=== PATIENT | male | born 1950 | race Caucasian/White ===

== ENCOUNTER → 2016-10-25 | Outpatient (CLI) | payer BC, MEDICARE ==
[~2016-10-25] MED LIST: /ATOR40TA OR; /LOR25TA OR; /PANT40TA OR; ACET65TA OR; AMBI10TA OR; ASPI325T OR; BENA20TA2 OR; BENA25CA2 PO; COMBVENT INH; CORE6.25 OR; FLON0.05; FOLI1TAB OR; KETO-28 OR; LEVO175T2 PO; LOTR52CA PO; MAGN500T2 OR; NITR4TASL SL; PHEN 25 PO; PHEN1SUP6 PR; PLAV75TA2 OR; POTA20TA OR; PROS5TAB OR; RANI150C OR; SYNT125T OR; TAMO20TA4 PO; TRAM50TA2 OR; TYLE500T78 PO; VITAMIN B-12 INJ; XANA0.25 OR; amlodipine PO
--- NOTE | 2016-10-25 10:31 | REP ---
UNILATERAL MAMMOGRAM LEFT BREAST: HISTORY: Right breast cancer and breast cancer in sister. Left breast mammogram performed in the MLO and CC projections. No mass or clustered microcalcifications are seen. There is very mild fibroglandular tissue present. IMPRESSION: ACR 1 negative mammogram left breast in his patient status post right breast cancer and mastectomy. Recommend followup mammogram in 1 year. This mammogram was interpreted with the aid of an FDA-approved computer-aided detection system. The patient states she/he had a clinical breast exam in 10/2016. The patient letter being requested is M1. Signed by Keith Houston MD 10/25/2016 03:19 P
== END ==
LOC: M RAD 09:02
PROVIDERS: ATTEND Internal Medicine Medical Oncology
DX: Z08 Encounter for follow-up examination after completed treatment for malignant neoplasm (principal); Z85.3 Personal history of malignant neoplasm of breast

== ENCOUNTER → 2017-08-19 | Outpatient (CLI) | payer MEDICARE ==
--- NOTE | 2017-08-19 09:42 | REP ---
CT of the chest without IV contrast: Comparisons are 08/23/2016 and 11/19/2014. There are multiple calcified granulomas in the left lung. These are unchanged. There are no calcified mediastinal or hilar nodes. There is a pleural-based 7 mm nodule posteriorly in the right lower lobe on image 52. This is unchanged from 08/23/2016 but was not present on 2014. There is no mediastinal adenopathy. There is no axillary adenopathy. The study is insensitive for hilar adenopathy in the absence of IV contrast. Thoracic aorta is unremarkable. Cardiac size is normal. There is calcified atheroma in the coronary arteries. The visualized upper abdominal contents demonstrate a gallbladder calculus measuring 8 mm. This is unchanged. There is no adrenal mass. Impression: Calcified granulomas in the left lung. 7 mm pleural-based lung nodule in the right lower lobe of the right lung, unchanged from 08/23/2016 but not present on 11/19/2014. Signed by Keith Zayas MD 08/19/2017 09:33 A
== END ==
LOC: M RAD 09:07
PROVIDERS: ATTEND Internal Medicine Pulmonary Disease
DX: R91.1 Solitary pulmonary nodule (principal); J84.10 Pulmonary fibrosis, unspecified

== ENCOUNTER → 2017-10-28 | Outpatient (CLI) | payer MEDICARE | LOC: M RAD 08:30 | DX: Z12.31 Encounter for screening mammogram for malignant neoplasm of breast (principal); Z85.3 Personal history of malignant neoplasm of breast; Z90.11 Acquired absence of right breast and nipple; Z08 Encounter for follow-up examination after completed treatment for malignant neoplasm | CPT/HCPCS: 77067 ==

== ENCOUNTER → 2018-08-18 | Outpatient (CLI) | payer MEDICARE | LOC: M RAD 09:11 | DX: J84.10 Pulmonary fibrosis, unspecified (principal); K80.20 Calculus of gallbladder without cholecystitis without obstruction | CPT/HCPCS: 71250 ==

== ENCOUNTER → 2018-10-10 | Outpatient (CLI) | payer MEDICARE ==
[~2018-10-10] MED LIST changes: +ISOVUE-370 76% 100ML VIAL (Q9967) As Ordered ONE; -TAMO20TA4 PO; +TAMO20TA8 PO
--- NOTE | 2018-10-10 17:32 | REP ---
CT angiography of the abdomen and pelvis with IV contrast: History: Iliac aneurysm. Comparison CT study of the abdomen is from October 23, 2014. CT contrast dose: 100 ml of intravenous Isovue [address] findings: There is one opaque gallstone visible in the dependent portion of the gallbladder. There is renal cortical parenchymal scarring in the upper pole of the right kidney. There is a bilateral L5 spondylolysis with grade 1 spondylolisthesis measuring 7 mm in diameter. Vascular findings: There is patchy vascular calcification. Calcific plaquing is seen at the origin of the renal arteries bilaterally and there is evidence of a high-grade left renal artery stenosis. The celiac and superior mesenteric artery origins are patent. The inferior mesenteric artery is patent although there is calcific plaquing at its origin. There is some plaquing and tortuosity of the suprarenal and infrarenal aorta. A small aorto- right iliac artery aneurysm is seen. The aortic component measures 3.6 cm in greatest AP dimension. The left common iliac artery is ectatic measuring 1.7 cm. The right common iliac artery aneurysm measures 2.7 cm in AP dimension. There is calcific plaquing along the common iliacs bilaterally. The external iliac arteries are tortuous bilaterally. Internal iliac artery on the right is aneurysmal proximally measuring 2.2 cm in greatest diameter. The left internal iliac artery shows no evidence of aneurysm. Common femoral artery plaquing is seen bilaterally. No high-grade stenosis seen. Impression: Distal aorto- right common iliac artery aneurysm. The right internal iliac artery is mildly aneurysmal as well. The left common iliac artery is ectatic. The distal aorta measures 3.6 cm in greatest AP dimension. This previously measured 3.0 cm on October 23, 2014. Electronically Signed by Jayden Joshua MD 10/11/2018 08:15 A
== END ==
LOC: M RAD 12:57
DX: I71.4 Abdominal aortic aneurysm, without rupture (principal); I72.8 Aneurysm of other specified arteries
CPT/HCPCS: 74174; Q9967

== ENCOUNTER → 2019-05-03 | Outpatient (REF) | payer MEDICARE ==
[~2019-05-03] MED LIST changes: -/ATOR40TA OR; -/PANT40TA OR; +ATOR80TA59 PO; +BAYE325T12 PO; +CARV6.25 PO; +CEPH500C; +COMBAER6 INH; +D3 S1CAP3 PO; +DIPH12.527 PO; +FINA5TAB2 PO; +FLUT1INH2 INH; +FOLITAB5 PO; +HYDR-3716 PO; -ISOVUE-370 76% 100ML VIAL (Q9967) As Ordered ONE; +KLOR20TA42 FT; +LIPI1TAB2 OR; +MAGN400T5 PO; +PANT-23 PO; +PHEN-501; +PLAV1TAB2 PO; +PROT1TAB2 OR; +RANI1SYP PO; +TRAM50TA2 PO; +XANA0.25 PO; +ZOLP10TA2 PO
== END ==
LOC: M LAB REF 09:39
PROVIDERS: ATTEND Physician Assistant
DX: R30.0 Dysuria (principal)

== ENCOUNTER 2019-05-04 08:02 | Emergency (ER) | payer MEDICARE ==
[~2019-05-04] VITALS: Ht 185.4 cm; Wt 98.6 kg
[~2019-05-04 08:02] MED LIST changes: -CEPH500C; -PHEN-501
[2019-05-04] MEDS ORDERED: CEPH500C (08:10)
[2019-05-04] MEDS ORDERED: PHEN-501 (08:10)
[2019-05-04] MEDS ORDERED: LIDOCAINE 2% 5ML JELLY UROJET TOP ONE (09:15)
[2019-05-04 09:17] LABS: BASO % 0.4 % (0.0-1.0); HEMATOCRIT 44.9 % (42.0-52.0); HEMOGLOBIN 15.1 g/dl (13.5-17.5); LYMPH # 1.6 10^3/uL (1.5-4.5); LYMPH % 16.6 % (24.0-44.0); MEAN CORPUSCULAR HEMOGLOBIN 33.6 pg (27.0-33.0); MEAN CORPUSCULAR HGB CONC 33.6 g/dl (32.0-36.5); MONO # 0.7 10^3/uL (0.0-0.8); MONO % 7.1 % (0.0-5.0); NEUTROPHILS % 75.6 % (36.0-66.0); PLATELET COUNT, AUTOMATED 210 10^3/uL (150-450); RED BLOOD COUNT 4.49 10^6/uL (4.30-6.10); WHITE BLOOD COUNT 9.3 10^3/uL (4.0-10.0)
[2019-05-04 09:26] LABS: BILIRUBIN, URINE MANUAL OBSCURED (NEGATIVE); KETONE, URINE MANUAL OBSCURED mg/dL (NEGATIVE); UROBILINOGEN, URINE MANUAL OBSCURED mg/dl (NORMAL)
[2019-05-04 09:27] LABS: GLUCOSE, URINE (UA) MANUAL NEGATIVE (NEGATIVE)
[2019-05-04 09:36] LABS: RENAL EPITHELIAL CELLS, URINE SMALL AMOUNT /hpf; SQUAMOUS EPITHELIAL CELL URINE MOD AMOUNT /hpf (SMALL AMT)
[2019-05-04 09:37] LABS: BACTERIA, URINE SMALL AMOUNT; HYALINE CAST, URINE NONE SEEN /lpf (0-1); SPERM, URINE SMALL AMOUNT
[2019-05-04 09:43] LABS: CALCIUM LEVEL 8.9 MG/DL (8.8-10.2); CREATININE FOR GFR 1.32 MG/DL (0.70-1.30); GLOMERULAR FILTRATION RATE 57.1 (>42); POTASSIUM SERUM 3.9 MEQ/L (3.5-5.1)
[2019-05-04] MEDS ORDERED: MORPHINE 4 MG/ML 1ML VIAL/SYRINGE (J2270) IV ONE (09:45)
[2019-05-04] MEDS ORDERED: ONDANSETRON 4MG/2ML VIAL (J2405) IV ONE (09:45)
[2019-05-04 13:07] VITALS: BP 157/90
--- NOTE | 2019-05-04 13:11 | SMCUROLCON ---
Urology Consultation General Date of Consultation 05/04/19 Reason For Consultation This patient is seen for Unable To Urinate. History of Present Illness This is a 68 y/o M w/ a PMH significant for migraines, CAD ([place] and 5v CABG in 2002), HTN, HL, BPH, hypothyroidism, and urethral meatal stenosis (s/p dilations x2), presenting to the ER w/ urinary retention. The patient notes that his stream has progressively gotten slower and slower up to the point where he could not void today. He has had 2 dilations for meatal stenosis previously, w/ the most recent one several years ago. He notes that after the last one he was given a dilator to use at home but he stopped as it was becoming too painful. He has never had a cystoscopy before. Past Medical History Medical History see HPI Surgical Hstory CABG, b/l knee surgeries Allergies Allergies: Coded Allergies: Nitrate Analogues (Verified Adverse Reaction, Intermediate, MIGRAINES, 01/22/19) morphine (Verified Adverse Reaction, Intermediate, N/V, MIGRAINES, 01/22/19) nitroglycerin (Verified Adverse Reaction, Intermediate, MIGRAINES, 01/22/19) Review of Systems General: Reports: Normal Appetite; Denies: Fatigue, Malaise Constitutional: Denies: Fever, Chills, Sweats, Weakness, Malaise Skin: Denies: Rash, Lesions, Breakdown, Nail Changes Pulmonary: Denies: Dyspnea, Cough Cardiovascular: Denies Chest Pain, Denies Palpitations Gastrointestinal: Denies: Nausea, Vomiting, Abdominal Pain Genitourinary: Reports: Retention Neurological: Denies: Weakness, Numbness, Incoordination, Change in Speech Psych: Reports: Mood Normal; Denies: Anxiety, Depression Physical Examination General Exam: Alert, Cooperative Chest Exam: Normal air movement Heart Exam: Rate Normal, Regular Rhythm Male Exam circumcised phallus w/ edema ventrally; meatal stenosis; b/l descended testicles w/o palpable masses - nontender Psych Exam: Mental status NL Vital Signs/I&O Vital Signs Date Time Temp Pulse Resp B/P (MAP) Pulse Ox O2 Delivery O2 Flow Rate FiO2 05/04/19 10:12 16 95 05/04/19 10:08 96.8 69 149/72 (97) Room Air Laboratory Data 24H Labs Laboratory Tests 2 05/04/19 08:42: Immature Granulocyte % (Auto) 0.3, White Blood Count 9.3, Red Blood Count 4.49, Hemoglobin 15.1, Hematocrit 44.9, Mean Corpuscular Volume 100.0H, Mean Corpuscular Hemoglobin 33.6H, Mean Corpuscular Hemoglobin Concent 33.6, Red Cell Distribution Width 13.3, Platelet Count 210, Neutrophils (%) (Auto) 75.6H, Lymphocytes (%) (Auto) 16.6L, Monocytes (%) (Auto) 7.1H, Eosinophils (%) (Auto) 0.0, Basophils (%) (Auto) 0.4, Neutrophils # (Auto) 7.0, Lymphocytes # (Auto) 1.6, Monocytes # (Auto) 0.7, Eosinophils # (Auto) 0.0, Basophils # (Auto) 0.0, Nucleated Red Blood Cells % (auto) 0.0, Anion Gap 4L, Glomerular Filtration Rate 57.1, Blood Urea Nitrogen 13, Creatinine 1.32H, Sodium Level 141, Potassium Level 3.9, Chloride Level 108H, Carbon Dioxide Level 29, Calcium Level 8.9 05/04/19 09:10: Urine Color (REENA) ORANGEH, Urine Appearance (REENA) CLEAR, Urine pH (REENA) 6.0, Urine Specific [place] (REENA) 1.015, Urine Protein OBSCUREDH, Bedside Urine Glucose (UA) NEGATIVE, Bedside Urine Ketones (LAB) OBSCUREDH, Bedside Urine Blood OBSCUREDH, Bedside Urine Nitrite (LAB) OBSCUREDH, Bedside Urine Bilirubin (LAB) OBSCUREDH, Bedside Urine Urobilinogen (LAB) OBSCUREDH, Bedside Urine Leukocyte Esterase (L OBSCUREDH, Urine Sediment Examination PERFORMED, Urine RBC 1-3, Urine WBC 15-20H, Urine Squamous Epithelial Cells MOD AMOUNTH, Urine Renal Epithelial Cells SMALL AMOUNTH, Urine Bacteria SMALL AMOUNTH, Urine Hyaline Casts NONE SEEN, Urine Sperm SMALL AMOUNTH CBC/BMP Laboratory Tests 05/04/19 08:42 Red Blood Count 4.49, Mean Corpuscular Volume 100.0 H, Mean Corpuscular Hemoglobin 33.6 H, Mean Corpuscular Hemoglobin Concent 33.6, Red Cell Distribution Width 13.3, Neutrophils (%) (Auto) 75.6 H, Lymphocytes (%) (Auto) 16.6 L, Monocytes (%) (Auto) 7.1 H, Eosinophils (%) (Auto) 0.0, Basophils (%) (Auto) 0.4, Neutrophils # (Auto) 7.0, Lymphocytes # (Auto) 1.6, Monocytes # (Auto) 0.7, Eosinophils # (Auto) 0.0, Basophils # (Auto) 0.0, Calcium Level 8.9 Microbiology Microbiology 05/04/19 Urine Culture, Received Pending Assessment This is a 68 y/o M w/ urethral meatal stenosis. Prior to placing a catheter, I prepped the patient w/ betadine and dilated his urethral meatus to 18Fr using curved metal sounds. Once done I was able to place a 16Fr López catheter. Plan - meatus dilated to 18Fr - 16Fr catheter placed - ok for discharge home w/ catheter in place - would keep on keflex - my office will contact the patient to schedule a follow up appt - he will need surgery later on, likely cystoscopy and meatotomy PATRICIA BRYANT MD May 04, 2019 13:11
[2019-05-18] MEDS ORDERED: ACET1TAB37 PO (15:20)
== END 2019-05-04 13:13 | disposition home or self-care (01) ==
LOC: M ED 08:02
DX: N35.919 Unspecified urethral stricture, male, unspecified site (principal); N39.0 Urinary tract infection, site not specified; N40.0 Benign prostatic hyperplasia without lower urinary tract symptoms; I10 Essential (primary) hypertension; E78.00 Pure hypercholesterolemia, unspecified; K21.9 Gastro-esophageal reflux disease without esophagitis; E03.9 Hypothyroidism, unspecified; G43.909 Migraine, unspecified, not intractable, without status migrainosus; F41.9 Anxiety disorder, unspecified; Z79.899 Other long term (current) drug therapy; Z79.890 Hormone replacement therapy; Z79.82 Long term (current) use of aspirin; Z79.02 Long term (current) use of antithrombotics/antiplatelets; Z88.5 Allergy status to narcotic agent; Z88.8 Allergy status to other drugs, medicaments and biological substances
CPT/HCPCS: 36415; 51702; 80048; 81000; 85025; 87086; 96374; 96375; 99284; J2270; J2405

== ENCOUNTER → 2019-05-26 | Outpatient (CLI) | payer MEDICARE ==
[~2019-05-26] MED LIST changes: +ACET1TAB37 PO; +APAP500T10 PO; +BENA25CA4 PO; +CEPH500C; +CEPH500C PO; +CHLO125TA PO; +D3 S20002 PO; +FLON1SPR NARES; +FOLI1TAB11 PO; +HYDR-4517 PO; +KETO10TAB PO; -KLOR20TA42 FT; +KLOR20TA42 PO; +MAGN400C PO; +PHEN-501; +PROM25SU2 PR; +RANI15TA PO
[2019-05-26 14:24] LABS: HEMATOCRIT 43.1 % (42.0-52.0); HEMOGLOBIN 14.4 g/dl (13.5-17.5); MEAN CORPUSCULAR HEMOGLOBIN 33.3 pg (27.0-33.0); MEAN CORPUSCULAR HGB CONC 33.4 g/dl (32.0-36.5); MEAN CORPUSCULAR VOLUME 99.8 fl (80.0-96.0); PLATELET COUNT, AUTOMATED 196 10^3/uL (150-450); RED BLOOD COUNT 4.32 10^6/uL (4.30-6.10); WHITE BLOOD COUNT 9.8 10^3/uL (4.0-10.0)
[2019-05-26 14:37] LABS: INR 1.08; PROTHROMBIN TIME 13.7 SECONDS (11.8-14.0)
[2019-05-26 14:38] LABS: PARTIAL THROMBOPLASTIN TIME 28.3 SECONDS (25.0-38.4)
[2019-05-26 14:46] LABS: CALCIUM LEVEL 8.8 MG/DL (8.8-10.2); CREATININE FOR GFR 1.44 MG/DL (0.70-1.30); GLOMERULAR FILTRATION RATE 51.6 (>42); POTASSIUM SERUM 4.4 MEQ/L (3.5-5.1)
--- NOTE | 2019-05-26 14:59 | REP ---
REASON: Preoperative evaluation. Comparison examination 10/22/2014. Note is again made of the previous median sternotomy. The heart size is borderline. There is an unchanged calcified granuloma left lower lobe. There are no new abnormal opacities. Chronic change is seen involving the spine. IMPRESSION: No evidence of acute disease. Electronically Signed by Ean Armenta DO 05/26/2019 04:14 P
== END ==
LOC: M SMT 12:02
PROVIDERS: ATTEND Nurse Practitioner Women's Health
DX: Z01.818 Encounter for other preprocedural examination (principal); N35.919 Unspecified urethral stricture, male, unspecified site

== ENCOUNTER → 2019-06-11 | Outpatient (REF) | payer MEDICARE ==
[~2019-06-11] MED LIST changes: +ASPI81TA26 PO
== END ==
LOC: M SMT 13:02
PROVIDERS: ATTEND Urology
DX: N35.919 Unspecified urethral stricture, male, unspecified site (principal)

== ENCOUNTER 2019-06-18 07:40 | Day surgery (SDC) | payer MEDICARE ==
[~2019-06-18] VITALS: Ht 188 cm; Wt 97.5 kg
[~2019-06-18 07:40] MED LIST changes: -ASPI81TA26 PO; +LIDOCAINE 1% MDV 20ML VIAL SQ PRN; +LR 1,000 ML IV ONE; +ceFAZolin SOD 2 GM in IV 1 EA IV ONE
[2019-06-18] MEDS ORDERED: ASPI81TA26 PO (08:02)
[2019-06-18] MEDS ORDERED: LIDOCAINE 1% SDV INJ 30 ML VIAL As Ordered ONE (09:07)
[2019-06-18] MEDS ORDERED: BUPIVACAINE HCL 0.25% 30 ML VIAL As Ordered ONE (09:07)
[2019-06-18] MEDS ORDERED: BACITRACIN OINT 30GM As Ordered ONE (09:07)
[2019-06-18] MEDS ORDERED: LIDOCAINE 2% INJ 100 MG/5 ML SDV (FOR ANES.) As Ordered ONE (09:24)
[2019-06-18] MEDS ORDERED: fentaNYL 100 MCG/2 ML INJECTION (J3010) As Ordered ONE (09:24)
[2019-06-18] MEDS ORDERED: propofoL 200 MG/20 ML VIAL As Ordered ONE ×2 (09:24→10:14)
[2019-06-18] MEDS ORDERED: MIDAZOLAM INJ 2 MG/2 ML VIAL (J2250) As Ordered ONE (09:25)
[2019-06-18] MEDS ORDERED: KETOROLAC 60 MG/2 ML VIAL (J1885) As Ordered ONE (10:22)
[2019-06-18] MEDS ORDERED: ONDANSETRON 4MG/2ML VIAL (J2405) As Ordered ONE (10:22)
[2019-06-18 12:04] VITALS: BP 179/94
--- NOTE | 2019-06-22 15:00 | RO ---
DATE OF PROCEDURE: 06/18/2019 PREPROCEDURE DIAGNOSIS: Meatal stenosis. POSTPROCEDURE DIAGNOSIS: Meatal stenosis. PROCEDURE: Meatoplasty, cystoscopy. SURGEON: Jared Nicholas MD CARBURETOR SPECIALIST: None. ANESTHESIA: MAC. OPERATIVE INDICATION: This is a 68-year-old male who has had meatal stenosis that has had to be dilated several times, including about 1 month ago. It was recommended that he be brought to the operating room today for the above listed procedure. DESCRIPTION OF PROCEDURE: The patient was brought to the operating room where MAC anesthesia was administered. Prophylactic antibiotics were infused. He was then placed in supine position, prepped and draped in the usual sterile fashion. At this point, I placed hemostats on the urethral meatus at 6 o'clock and left them on there for approximately 60 seconds each time. This was done for a length of approximately 1-1/2 cm. After that was done, the clamps were taken off and the urethral meatus was incised at 6 o'clock for approximately 1-1/2 cm distally. After it was incised, I sewed of the edges of the skin to the urethral mucosa using interrupted 4-0 Vicryl sutures. Once this was done, there was excellent hemostasis and the urethral meatus was widely patent. I then performed flexible cystoscopy and there were no urethral strictures proximally. The bladder was thoroughly examined and there were no abnormalities in the bladder. The ureteral orifices were orthotopic. There were no lesions seen. Of note, there was mild outlet occlusion from bilobar prostatic hyperpalsia. The cystoscope was then removed and at this point a 16-[place] López catheter was inserted into the bladder and the balloon was filled with 10 mL of sterile water. The catheter was connected to gravity drainage. Dressings were applied. The marked conclusion of the procedure. The patient was then awakened from anesthesia and was transported to the recovery room in stable condition. Estimated blood loss: 5 mL. Complications: None. Specimens: None. PLAN: The patient will followup in the clinic next week for catheter removal and a voiding trial. He should be able to go back on his aspirin and Plavix at that time. RAVEN
[2019-09-24] MEDS ORDERED: TAMO20TA8 PO (15:47)
== END 2019-06-18 12:10 | disposition home or self-care (01) ==
LOC: M SDC 07:40
PROVIDERS: ATTEND Urology
DX: N35.919 Unspecified urethral stricture, male, unspecified site (principal); I10 Essential (primary) hypertension; I25.10 Atherosclerotic heart disease of native coronary artery without angina pectoris; I25.2 Old myocardial infarction; Z79.01 Long term (current) use of anticoagulants; I73.9 Peripheral vascular disease, unspecified; N40.0 Benign prostatic hyperplasia without lower urinary tract symptoms; Z95.1 Presence of aortocoronary bypass graft; D64.9 Anemia, unspecified; Z88.8 Allergy status to other drugs, medicaments and biological substances; Z79.82 Long term (current) use of aspirin; Z79.899 Other long term (current) drug therapy; Z87.891 Personal history of nicotine dependence
CPT/HCPCS: 52281; C1769; J0690; J1885; J2250; J2405; J3010

== ENCOUNTER → 2019-11-18 | Outpatient (CLI) | payer MEDICARE ==
[~2019-11-18] MED LIST changes: +ASPI81TA26 PO; +D-20TAB PO; +FAMO20TA PO; -LIDOCAINE 1% MDV 20ML VIAL SQ PRN; -LR 1,000 ML IV ONE; -ceFAZolin SOD 2 GM in IV 1 EA IV ONE
[2019-11-18 13:33] LABS: BLOOD UREA NITROGEN 14 MG/DL (7-18); CREATININE FOR GFR 1.24 MG/DL (0.70-1.30); GLOMERULAR FILTRATION RATE > 60.0 (>42)
== END ==
LOC: M LAB 09:48
PROVIDERS: ATTEND Surgery Vascular Surgery
DX: Z48.812 Encounter for surgical aftercare following surgery on the circulatory system (principal)

== ENCOUNTER → 2019-11-24 | Outpatient (CLI) | payer MEDICARE ==
--- NOTE | 2019-11-24 15:25 | REP ---
DIGITAL DIAGNOSTIC UNILATERAL LEFT BREAST MAMMOGRAPHY WITH CAD, 3D TOMOGRAPHY, AND FOCUSED LEFT BREAST SONOGRAPHY. HISTORY: Personal history of contralateral right breast cancer status post right mastectomy. Palpable lump in the left breast noticed the previous day. Comparison is made with prior mammography from April 21, 2013, October 25, 2016, and October 28, 2017. MAMMOGRAPHIC FINDINGS: A skin marker is affixed to the skin at the site of the palpable lump which projects in the upper outer quadrant left breast. Routine mammographic images are augmented by magnified focal spot views and 3D tomography. The breast parenchyma is fat replaced as previously observed. No mass lesion has developed mammographically. No architectural distortion or microcalcification is seen. No worrisome skin changes appreciated. No nipple inversion. FOCUSED LEFT BREAST SONOGRAPHY: The left breast is scanned in the region of the palpable lump in the upper outer quadrant. Normal subcutaneous acoustic texture is seen. No cyst or mass is observed by ultrasound. IMPRESSION: BIRADS 1: BI-RADS/ACR category 1 mammogram. Negative Mammogram. BIRADS category 1 negative left breast imaging findings. Clinical follow-up is advised. This mammogram was interpreted with the aid of an FDA-approved computer-aided detection system. The patient states he had a clinical breast exam in October 2019 The patient letter being requested is M2 . Electronically Signed by Jayden Joshua MD 11/24/2019 07:37 P
== END ==
LOC: M RAD 12:17
PROVIDERS: ATTEND Internal Medicine Hematology & Oncology
DX: Z12.31 Encounter for screening mammogram for malignant neoplasm of breast (principal); C50.421 Malignant neoplasm of upper-outer quadrant of right male breast
CPT/HCPCS: 76642; 77065; G0279

== ENCOUNTER → 2019-11-25 | Outpatient (CLI) | payer MEDICARE ==
[~2019-11-25] MED LIST changes: +ISOVUE-370 76% 100ML VIAL (Q9967) As Ordered ONE
--- NOTE | 2019-11-25 13:57 | REP ---
CT angiography abdomen and pelvis with IV contrast: History: Abdominal aortic aneurysm. Iliac artery aneurysm. Comparison CT angiography October 10, 2018 showed a distal aorto/right common iliac artery aneurysm and a right proximal internal iliac artery aneurysm. CT contrast dose: 100 mL of intravenous Isovue 370. CT technique: Helical scanning is acquired and 3 mm axial images are reformatted. Coronal and sagittal MPR and MIP images are generated. Surface rendered 3-D images are generated and viewed in a rotational display format. Nonvascular CT findings: There is an opaque gallstone in the gallbladder. There is a granuloma in the left lower lobe of the lung. There is cortical scarring in the upper pole of the right kidney. There is a bilateral L5 spondylolysis and a grade 1, 8 mm, L5-L1 spondylolisthesis is seen. These findings are all unchanged. Vascular findings: Widely patent celiac and superior mesenteric axes are again seen. There is evidence of high-grade stenosis of the left renal artery just beyond its origin. This is felt to be unchanged. There is considerable calcific plaquing at the origin of the right renal artery with some narrowing. This is also unchanged. There is a distal abdominal aortic aneurysm which measures 4.2 cm in greatest anteroposterior dimension on today's CT study. This measurement in September of 2018 was 3.6 cm. Its right to left dimension at this level is 5.0 cm, previously 4.5 cm. As previously noted there is extension of the aneurysm of the common iliac artery on the right which measures 3.0 cm today, previously 2.7 cm. The right internal iliac artery aneurysm measures 2.3 cm today, previously 2.2 cm. The left common iliac artery is again noted to be diffusely ectatic, 1.9 cm. Previously 1.7 cm. No perianeurysmal fibrosis or hemorrhage is seen. There is atherosclerotic calcification and some plaquing in the external iliac and common femoral arteries bilaterally. Impression: Aorto/right iliac artery aneurysm is again noted, increased in size somewhat from the prior study. The aortic dimension is 4.2 cm anterior to posterior today. Electronically Signed by Jayden Joshua MD 11/25/2019 02:38 P
== END ==
LOC: M RAD 10:03
PROVIDERS: ATTEND Surgery Vascular Surgery
DX: I71.4 Abdominal aortic aneurysm, without rupture (principal); I72.3 Aneurysm of iliac artery
CPT/HCPCS: 74174; Q9967

== ENCOUNTER → 2020-01-04 | Outpatient (REF) | payer MEDICARE ==
[~2020-01-04] MED LIST changes: -ISOVUE-370 76% 100ML VIAL (Q9967) As Ordered ONE
[2020-01-04 13:02] LABS: BASO % 0.5 % (0.0-1.0); HEMOGLOBIN 14.7 g/dl (13.5-17.5); LYMPH % 28.7 % (24.0-44.0); MEAN CORPUSCULAR HEMOGLOBIN 33.6 pg (27.0-33.0); MEAN CORPUSCULAR HGB CONC 33.4 g/dl (32.0-36.5); MEAN CORPUSCULAR VOLUME 100.7 fl (80.0-96.0); MONO % 7.9 % (0.0-5.0); NEUTROPHILS # 5.4 10^3/uL (1.5-8.5); NEUTROPHILS % 62.4 % (36.0-66.0); PLATELET COUNT, AUTOMATED 201 10^3/uL (150-450); RED BLOOD COUNT 4.37 10^6/uL (4.30-6.10); WHITE BLOOD COUNT 8.6 10^3/uL (4.0-10.0)
[2020-01-04 13:03] LABS: LYMPH # 2.5 10^3/uL (1.5-5.0); MONO # 0.7 10^3/uL (0.0-0.8)
[2020-01-04 13:38] LABS: ERYTHROCYTE SEDIMENTATION RATE 1 mm/hr (0-20)
== END ==
LOC: M LABDRAW1 11:45
PROVIDERS: ATTEND Orthopaedic Surgery
DX: M25.562 Pain in left knee (principal)

== ENCOUNTER → 2020-01-19 | Outpatient (CLI) | payer MEDICARE ==
--- NOTE | 2020-01-19 13:41 | REP ---
TRIPLE PHASE BONE SCAN OF THE KNEES: Following the intravenous administration of 22 mCi of technetium-99m MDP, patient's knees are imaged in multiple projections in the flow phase, immediate blood pool phase and 2 hour delayed phases of imaging. There are bilateral total knee prostheses which cause photopenic defects at both knee joints. There is mild increased blood flow to the region of the left knee. There is also mild increased blood pooling particularly along the femoral portion of the left knee prosthesis. There is increased delayed activity in the distal left femur adjacent to the metallic prosthesis. There is not significant increased uptake in the distal right femur or in the proximal tibias bilaterally. IMPRESSION: Increased blood flow, blood pooling and delayed activity in the distal left femur adjacent to metallic prosthesis. I cannot exclude loosening or infection. Electronically Signed by Keith Houston MD 01/19/2020 01:42 P
== END ==
LOC: M RAD 08:57
PROVIDERS: ATTEND Orthopaedic Surgery
DX: Z96.652 Presence of left artificial knee joint (principal)
CPT/HCPCS: 78315; A9503

== ENCOUNTER → 2020-02-24 | Outpatient (CLI) | payer MEDICARE ==
[2020-02-24 17:01] LABS: CALCIUM LEVEL 9.1 MG/DL (8.8-10.2); CREATININE FOR GFR 1.31 MG/DL (0.70-1.30); GLOMERULAR FILTRATION RATE 57.4 (>42); POTASSIUM SERUM 3.8 MEQ/L (3.5-5.1)
[2020-02-24 17:02] LABS: ALBUMIN 3.8 GM/DL (3.2-5.2); BILIRUBIN,TOTAL 0.4 MG/DL (0.2-1.0); TOTAL PROTEIN 6.6 GM/DL (6.4-8.2)
[2020-02-24 17:09] LABS: BASO % 0.5 % (0.0-1.0); HEMATOCRIT 45.5 % (42.0-52.0); HEMOGLOBIN 14.7 g/dl (13.5-17.5); LYMPH # 2.1 10^3/uL (1.5-5.0); LYMPH % 27.5 % (24.0-44.0); MEAN CORPUSCULAR HEMOGLOBIN 32.8 pg (27.0-33.0); MEAN CORPUSCULAR HGB CONC 32.3 g/dl (32.0-36.5); MEAN CORPUSCULAR VOLUME 101.6 fl (80.0-96.0); MONO # 0.6 10^3/uL (0.0-0.8); MONO % 7.1 % (0.0-5.0); NEUTROPHILS % 64.5 % (36.0-66.0); PLATELET COUNT, AUTOMATED 217 10^3/uL (150-450); RED BLOOD COUNT 4.48 10^6/uL (4.30-6.10); WHITE BLOOD COUNT 7.7 10^3/uL (4.0-10.0)
== END ==
LOC: M LRY 09:46
PROVIDERS: ATTEND Internal Medicine Hematology & Oncology
DX: C50.929 Malignant neoplasm of unspecified site of unspecified male breast (principal)

== ENCOUNTER → 2020-11-10 | Outpatient (REF) | payer MEDICARE ==
[~2020-11-10] MED LIST changes: -PROM25SU2 PR; +PROM25SU3 PR
== END ==
LOC: M LABSMT 08:54
PROVIDERS: ATTEND Urology
DX: Z12.5 Encounter for screening for malignant neoplasm of prostate (principal)

== ENCOUNTER → 2020-11-22 | Outpatient (CLI) | payer MEDICARE ==
--- NOTE | 2020-11-22 12:23 | REPPI ---
INDICATION: ELEVATED PSA. COMPARISON: None. TECHNIQUE: Transrectal prostate sonography. FINDINGS: Trans rectal prostate sonography demonstrates unremarkable seminal vesicles. Prostate gland is heterogeneous, with calcifications and cystic changes noted. Glandular dimensions are measured at 3.3 x 1.9 x 4.5 cm with a calculated glandular volume of 14.7 ml. A 1.4 cm hypoechoic nodule is seen in the right posterior gland. Transrectal sonographic guidance is provided to Dr. Nicholas who performed trans rectal ultrasound guided needle biopsy procedure. IMPRESSION: Transrectal prostate sonographic findings as above. <Electronically signed by Tung Joshua > 11/22/20 [id number]
== END ==
LOC: M SMT PRO 08:27
PROVIDERS: ATTEND Urology
DX: C61 Malignant neoplasm of prostate (principal)
CPT/HCPCS: 55700; 76872; 76942; G0416

== ENCOUNTER → 2020-12-02 | Outpatient (CLI) | payer MEDICARE ==
--- NOTE | 2020-12-02 11:00 | REPMRS ---
Patient History The patient states she has not had a clinical breast exam in over a year. Patient has history of prostate cancer at age 70 and has history of cancer in the right breast at age 62. Family history of breast cancer at age 50 or over in sister, colorectal cancer at age 50 or over in mother, prostate cancer at age 50 or over in father, unknown cancer at age 50 or over in brother. Malignant US guided breast biopsy of the right breast, May 13, 2013. Taking tamoxifen for 1 year 6 months. Diagnostic Unilateral Mammo: Left Breast - December 02, 2020 - Exam #: [id number] CC and MLO view(s) were taken of the left breast. Technologist: Mere Marin, Technologist Prior study comparison: November 24, 2019, left breast digital mammo diagnostic unilateral, performed at [facility]. October 28, 2017, bilateral digital mammo screening bilat, performed at [facility]. October 25, 2016, bilateral digital mammo screening bilat, performed at [facility]. FINDINGS: There are scattered fibroglandular densities. There has been no change in the appearance of the left breast parenchyma in the interval since the prior examination. No mass, architectural distortion, or microcalcific grouping has developed. No suspicious finding. 3-D tomosynthesis shows no additional findings. Assessment: BI-RADS/ACR category 2 mammogram. Benign Findings. Recommendation Routine screening mammogram of the left breast in 1 year. This mammogram was interpreted with the aid of an FDA-approved computer-aided dectection system. Electronically Signed By: Tung Joshua MD 12/02/20 [id number]
== END ==
LOC: M WHC 10:06
PROVIDERS: ATTEND Internal Medicine Medical Oncology
DX: Z85.3 Personal history of malignant neoplasm of breast (principal); Z85.46 Personal history of malignant neoplasm of prostate; Z80.0 Family history of malignant neoplasm of digestive organs; Z92.29 Personal history of other drug therapy
CPT/HCPCS: 77065; G0279

== ENCOUNTER → 2020-12-20 | Outpatient (CLI) | payer MEDICARE ==
[~2020-12-20] MED LIST changes: +D31000TA2 PO; +VITMTA PO
--- NOTE | 2020-12-20 12:53 | RADONC.CN ---
Radiation Oncology Hx/Consult Radiation Oncology Consult Date of Service: Dec 20, 2020 Pt Identifier Finn Nunez is a 70 year old male with a history of right male breast cancer [id number] ER/AR+ HER2- s/p mastectomy and adjuvant RT 48.6 Gy in 28 fractions to the chest wall and an additional 5.4 Gy in 3 fractions boost completed 07/21/13. He continues on tamoxifen. 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 He has elected to pursue EBRT for treatment. Dr. Nicholas has given him 6 months ADT. Diagnosis/Treatment History Oncologic History Right male breast cancer 2012 see above. Prostate cancer [id number] Noted LEXII+ on right 11/10/20 PSA 1.71 11/22/20 LILLIAN biopsy [place] 3+4=7 4/12 cores+ on right Left prostate negative Gland 15cc IPSS 7 ILAN 1 Interval History Here with his . Reports he has been tolerating tamoxifen well since starting in 2014, no side effects. He has minimal urinary symptoms. gets up once nightly. No daytime frequency or urgency concerns. He has regular BMs daily, no BRBPR. Since ADT injection, he notes some emotional lability, feels sad spontaneously from [id number]-lv-cwis, some joint pains. No hot flashes. Appetite good weight stable. No bone pain. Past Medical History: BPH CVD HPL HTN Melanoma on nose s/p excision 2020 Past Surgical History: CABG PCI w/ stents Meatotomy Family History: Father bladder cancer Mother small bowel cancer 2 Brothers skin cancer 2 Sisters cancer (unknown type) Social History: Never smoker Does not drink Exposures to asbestos and lead occupaitonal Allergies / Meds Allergies: Coded Allergies: Nitrate Analogues (Verified Adverse Reaction, Intermediate, MIGRAINES, 01/22/19) morphine (Verified Adverse Reaction, Intermediate, N/V, MIGRAINES, 01/22/19) nitroglycerin (Verified Adverse Reaction, Intermediate, MIGRAINES, 01/22/19) Home Meds Active Scripts Tamoxifen Citrate (Tamoxifen Citrate) 20 Mg Tab, 20 MG PO DAILY for 90 Days, #90 TAB 3 Refills Prov:NAVEEN CALIX MD 03/31/20 Reported Medications Multivitamins (Thera M Plus Tablet) 1 Each Tablet, 1 TAB PO QAM for 30 Days, #30 TAB 12/15/20 Cholecalciferol (Vitamin D3) (Vitamin D3) 1,000 Unit Tablet, 2000 UNITS PO DAILY, TAB 12/15/20 Ketorolac Tromethamine (Ketorolac Tromethamine) 10 Mg Tablet, 10 MG PO Q6H PRN for PAIN for 3 Days, #12 TAB 05/26/19 Promethazine HCl (Promethegan) 25 Mg Supp.rect, 25 MG AR Q6H PRN for MIGRAINE, SUP 05/26/19 Diphenhydramine HCl (Benadryl) 25 Mg Capsule, 25 MG PO QPM PRN for SLEEP for 30 Days, #30 CAP 05/26/19 Acetaminophen (Acetaminophen) 500 Mg Tablet, 500 MG PO Q6H PRN for pain for 15 Days, #60 TAB 05/26/19 Ipratropium/Albuterol Sulfate (Combivent Respimat 20-100 Mcg) 4 Gm Mist.inhal, 1 PUFF INH QID PRN for SOB/WHEEZING, #1 INHALER 05/26/19 Hydrocodone/Acetaminophen (Hydrocodone-Acetamin 10-325 mg) 1 Each Tablet, 1 TAB PO QIDP PRN for pain MDD 4 Tablet(s) for 5 Days, #20 TAB 05/26/19 Folic Acid (Folic Acid) 1 Mg Tablet, 1 TAB PO DAILY for 30 Days, #30 TAB 05/26/19 Chlorthalidone (Chlorthalidone) 25 Mg Tablet, 12.5 MG PO DAILY, HALFTAB 05/26/19 Magnesium Oxide (Magnesium) 400 Mg Capsule, 400 MG PO DAILY for constipation for 30 Days, #30 CAP 05/26/19 Amlodipine/Benazepril (Lotrel 5-20 mg Capsule) 1 Each Capsule, 1 CAP PO DAILY f or 30 Days, #30 CAP 05/26/19 Finasteride (Finasteride) 5 Mg Tab, 5 MG PO DAILY for 30 Days, #30 TAB 11/03/18 Carvedilol (Carvedilol) 6.25 Mg Tab, 6.25 MG PO BID for 30 Days, #60 TAB 11/03/18 Zolpidem Tartrate (Zolpidem Tartrate) 10 Mg Tab, 10 MG PO QPMP PRN for sleep MDD 1 Tablet(s) for 30 Days, #30 TAB 11/03/18 Pantoprazole Sodium (Pantoprazole Sodium) 40 Mg Tab, 40 MG PO DAILY for 30 Days, #30 TAB 11/03/18 Clopidogrel Bisulfate (Plavix) 75 Mg Tab, 75 MG PO DAILY for 30 Days, #30 TAB 11/03/18 Tramadol HCl (Tramadol HCl) 50 Mg Tab, 50 MG PO Q6HP PRN for pain MDD 4 Tablet(s) for 7 Days, #30 TAB 11/03/18 Alprazolam (Xanax) 0.25 Mg Tab, 0.25 MG PO TID MDD 2 Tablet(s) for 30 Days, #60 TAB 11/03/18 Atorvastatin Calcium (Atorvastatin Calcium) 80 Mg Tab, 80 MG PO DAILY for 30 Days, #30 TAB 11/03/18 Potassium Chloride (Klor-Con M20) 20 Meq Tabcr, 40 MEQ PO DAILY, TABCR 11/03/18 Aspirin (Aspirin) 325 Mg Tab, 325 MG PO DAILY for fever for 30 Days, #30 TAB 11/03/18 Nitroglycerin (Nitrostat) 0.4 Mg Subl, 0.4 MG SL PRN for CHEST PAIN, TAB 12/14/15 Levothyroxine Sodium (LEVOTHYROXINE SODIUM) 175 Mcg Tab, 150 MCG PO DAILY, TAB 12/14/15 [Vitamin B-12] No Conflict Check, 1 DOSE INJ Q3WKS 12/30/11 Discontinued Reported Medications Cholecalciferol (Vitamin D3) (Vitamin D3) 2,000 Unit Tablet, 2000 UNIT PO DAILY, TAB 11/18/19 Review of Systems Constitutional: Denies: Chills, Fever, Night Sweats Eyes: Denies: Pain, Vision change HEENT: Denies: Head Aches, Dysphagia, Sore Throat Skin: Denies: Rash, Lesions, Bruising Pulmonary: Denies: Dyspnea, Cough Cardiovascular: Denies: Chest Pain, Palpitations, Edema Breast: Denies: New Breast Lumps / Masses, Breast Pain or Tenderness Gastrointestinal: Denies: Nausea, Vomiting, Abdominal Pain, Diarrhea Genitourinary: Denies: Dysuria, Frequency, Incontinence Hematologic: Denies: Bruising, Petecchia, Enlarged Lymph Nodes Endocrine: Denies: Cold Intolerance Musculoskeletal: Denies: Neck pain, Back pain Neurological: Denies: Weakness, Numbness, Incoordination Psych: Reports: Mood Normal; Denies: Memory Issues, Thoughts of Self Harm Vital Signs Ht 72" Wt 214 lbs BMI 29 T 97 P 71 RR 18 BP 130/84 O2 98% Pain 0 Fatigue 0 General Exam: Positive: Alert, Cooperative, No Acute Distress Eye Exam: Positive: PERRLA, EOMI ENT EXAM: Positive: Mucous membr. moist/pink, Pharynx Normal Neck Exam: Negative: Thyromegaly, Lymphadenopathy Chest Exam: Positive: Normal air movement; Negative: Rales, Rhonchi, Wheezing Heart Exam: Positive: Rate Normal, Regular Rhythm Abdomen Exam: Positive: Soft; Negative: Tenderness, Mass Male Exam: Positive: Normal Genital Exam, Normal Sphincter Tone; Negative: Normal Prostate (Right sided nodule) Extremity Exam: Negative: Edema, Tenderness Skin Exam: Positive: Nl turgor and temperature; Negative: Rash Neuro Exam: Positive: Normal Gait, Normal Speech, Cranial Nerves 3-12 NL Psych Exam: Positive: Mental status NL, Mood NL, Memory Intact Diagnostic and Laboratory Diagnostic Review Radiologic images, relevant labs and pathology reports were personally reviewed and discussed with Mr. Nunez. Assessment and Plan Impression Mr. Nunez is a 70 year old male with a history of right male breast cancer [id number] ER/AR+ HER2- s/p mastectomy and adjuvant RT 48.6 Gy in 28 fractions to the chest wall and an additional 5.4 Gy in 3 fractions boost completed 07/21/13. He continues on tamoxifen. 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 He has elected to pursue EBRT for treatment. Dr. Nicholas has given him 6 months ADT. Stage Prostate adenocarcinoma [id number] [place] 3+4=7 (4/12 cores+) PSA 1.71 stage IIB Performance Status ECOG 0 Plan We had an extensive discussion with Mr. Nunez regarding the diagnosis at hand and available therapeutic options. His breast cancer remains in remission, he is taking tamoxifen. He had recent medical oncology follow up for this and has been undergoing screening mammograms. He has minimal LUTs. 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 I will defer ordering staging CT pelvis and bone scan due to very low PSA. He has favorable intermediate risk disease and would be a good candidate for moderate hypofractionation 70 Gy in 28 fractions versus SBRT 36.25 Gy in 5 fractions. Both are highly likely to cure him, the latter is a more convenient schedule but is based on shorter follow up. He is interested in SBRT. I also discussed SpaceOAR and fiducial marker placement, the former to significantly reduce the risk of clinically significant acute and late GI side effects, the latter to help localize better for daily treatment. He is interested in pursuing these medically necessary measures. We discussed the logistics of receiving radiation therapy in detail including the need for a 1-time planning session. This will occur 1-2 weeks after SpaceOAR and fiducial marker placement. We reviewed the side effects of treatment including increased irritative voiding symptoms, diarrhea, fatigue and late rectal bleeding (which is mitigated by SpaceOAR) After discussing the risks, benefits and alternatives to radiation therapy, Mr. Nunez was amenable to pursuing radiotherapy. All questions were answered to the patient's satisfaction. We instructed the patient that if there were any questions,concerns or changes in clinical status in the interim to contact us. Recommendations SBRT prostate 36.25 Gy in 5 fractions SpaceOAR and fiducial marker placement Simulation 1-2 weeks post placement ADT 6 month injection given per Dr. Nicholas Will recheck PSA/testosterone at time of simulation Billing Statement Total time of [40] minutes was spent preparing for the visit [3], obtaining HPI [5], examining the patient [2], reviewing diagnostic tests [2], discussing management options [15], coordinating care [3], and writing this note [10]. ROBERT BURNETT MD Dec 20, 2020 12:28
== END ==
LOC: M ONCR 09:39
PROVIDERS: ATTEND General Practice
DX: C61 Malignant neoplasm of prostate (principal)

== ENCOUNTER → 2021-01-06 | Outpatient (CLI) | payer MEDICARE ==
[~2021-01-06] MED LIST changes: +CIPR-249 PO; +LORA1TAB4 PO
--- NOTE | 2021-01-06 08:23 | REP ---
INDICATION: F/U AAA COMPARISON: None. TECHNIQUE: Real time cash scale ultrasound examination using curved array transducer. FINDINGS: Abdominal aorta demonstrates atherosclerotic changes. There is an infrarenal abdominal aortic aneurysm measuring approximately 4.4 x 6.2 cm in maximal AP/transverse diameter and approximately 8.8 cm in craniocaudal length measuring 4 cm from the renal arteries extending into the common iliac arteries. No associated periaortic inflammatory changes or fluid noted. Proximal aorta: 2.2 x 3.2 cm Aorta at renal arteries: 2.2 x 2.6 cm Mid aorta: 2.4 x 2.7 cm Distal aorta: 4.4 x 6.2 cm Right common iliac artery: 2.8 x 3.5 cm Left common iliac artery: 2.1 x 1.7 cm IMPRESSION: Abdominal aortic aneurysm as described above. No prior ultrasound exam for comparison although findings are similar to CT dated 11/25/2019. <Electronically signed by Mayur Rodriguez > 01/06/21 0819
== END ==
LOC: M RAD 07:39
PROVIDERS: ATTEND Internal Medicine
DX: I71.4 Abdominal aortic aneurysm, without rupture (principal)

== ENCOUNTER → 2021-01-13 | Outpatient (CLI) | payer MEDICARE ==
[~2021-01-13] MED LIST changes: +LIDOCAINE 2% MDV 20ML VIAL XX ONE; +LIDOCAINE VISCOUS 2% SOLN 15ML UDC XX ONE
--- NOTE | 2021-01-13 13:07 | ROOPDOC ---
[facility] Report Of Operation Report of Operation [facility] Radiation Oncology SpaceOAR & fiducial marker procedure note Name: Finn Nunez DevaughnB: 46 Procedure diagnosis: C61.0 Prostate cancer Procedure date/time: 01/13/2021 1130 Physician: Robert Burnett MD Implant(s): Fiducials (2 seeds per needle): Qfix [id number] Lot# [id number] Exp 03/20/2024 Qty 2 SpaceOAR: [id number] Lot# [id number] Exp 09/02/22 Qty 1 Description of procedure: Informed consent for placement of SpaceOAR and fiducial marker seeds (4) was obtained pre-procedure. A timeout was completed. The patient was placed in the high lithotomy position and a rectal exam with 2% viscous lidocaine was completed. The rectal vault was empty of stool. A chlorhexidine prep of the perineal skin was completed. The trans-rectal ultrasound probe was introduced, the prostate and the rectal bulb were well visualized. 2% lidocaine was infiltrated in the skin and soft tissues of the perineum via a 23 Ga spinal needle under ultrasound guidance. 10cc of local was used. Patient tolerated the block well. Next, fiducial marker seeds were placed via pre-loaded 18 Ga needles under ultrasound guidance. 2 seeds were placed in the left base and apex, respectively. 2 seeds were placed in the right base and apex, respectively. A hydro-dissection of the space between the prostate and rectum was conducted by locating Denonvilliers fascia and injecting 10 cc of isotonic saline through an 18 Ga needle into the potential space there to develop a plane for SpaceOAR implant. Once the hydro-dissection was complete, the needle was withdrawn to mid-gland and the implant needle was then checked in the sagittal and transverse planes for optimal position and once verified, the SpaceOAR implant was placed. The implant was noted to have excellent positioning from base to near-apex. The needle was withdrawn and the ultrasound probe was removed from the rectum. Post procedure vital signs were WNL. The patient tolerated the procedure well without significant discomfort. EBL: <1cc Disposition: Simulation for radiation therapy will occur in the next 1-2 weeks The patient will complete antibiotic prophylaxis this evening ROBERT BURNETT MD Jan 13, 2021 13:07
== END ==
LOC: M ONCR 10:26
PROVIDERS: ATTEND General Practice
DX: C61 Malignant neoplasm of prostate (principal)
CPT/HCPCS: 55874; 55876; A4648; C1889

== ENCOUNTER 2021-01-31 13:38 | Outpatient (RCR) | payer MEDICARE ==
[~2021-01-31 13:38] MED LIST changes: -LIDOCAINE 2% MDV 20ML VIAL XX ONE; -LIDOCAINE VISCOUS 2% SOLN 15ML UDC XX ONE
== END 2021-02-17 ==
LOC: M ONCR 13:38
PROVIDERS: ATTEND General Practice
DX: C61 Malignant neoplasm of prostate (principal)

== ENCOUNTER 2021-02-24 08:18 | Outpatient (RCR) | payer MEDICARE ==
[2021-03-07] MEDS ORDERED: FLOM0.4C39 PO (16:03)
== END 2021-03-20 ==
LOC: M ONCR 08:18
PROVIDERS: ATTEND General Practice
DX: C61 Malignant neoplasm of prostate (principal)

== ENCOUNTER → 2021-03-07 | Outpatient (REF) | payer MEDICARE ==
[~2021-03-07] MED LIST changes: +FLOM0.4C39 PO
== END ==
LOC: M LAB REF 15:48
PROVIDERS: ATTEND Nurse Practitioner Family
DX: R30.0 Dysuria (principal)

== ENCOUNTER 2021-04-27 21:00 | Emergency (ER) | payer MEDICARE ==
[~2021-04-27] VITALS: Ht 185.4 cm; Wt 97.7 kg
[2021-04-27 21:29] LABS: BASO % 0.2 % (0.0-1.0); HEMATOCRIT 39.9 % (42.0-52.0); HEMOGLOBIN 13.4 g/dl (13.5-17.5); LYMPH # 1.3 10^3/uL (1.5-5.0); LYMPH % 10.4 % (24.0-44.0); MEAN CORPUSCULAR HEMOGLOBIN 33.8 pg (27.0-33.0); MEAN CORPUSCULAR HGB CONC 33.6 g/dl (32.0-36.5); MEAN CORPUSCULAR VOLUME 100.5 fl (80.0-96.0); MONO # 0.6 10^3/uL (0.0-0.8); MONO % 4.9 % (2.0-8.0); NEUTROPHILS # 10.2 10^3/uL (1.5-8.5); PLATELET COUNT, AUTOMATED 199 10^3/uL (150-450); RED BLOOD COUNT 3.97 10^6/uL (4.30-6.10); WHITE BLOOD COUNT 12.2 10^3/uL (4.0-10.0)
[2021-04-27 22:04] LABS: ALBUMIN 3.6 GM/DL (3.2-5.2); ALT/SGPT 18 U/L (12-78); BILIRUBIN,DIRECT 0.1 MG/DL (0.0-0.2); BILIRUBIN,TOTAL 0.4 MG/DL (0.2-1.0); BLOOD UREA NITROGEN 10 MG/DL (7-18); CALCIUM LEVEL 8.7 MG/DL (8.8-10.2); CARBON DIOXIDE LEVEL 27 MEQ/L (21-32); CHLORIDE LEVEL 109 MEQ/L (98-107); CK-MB VALUE MASS < 1.0 NG/ML (<3.6); CPK CREATINE PHOSPHOKINASE 102 U/L (39-308); CREATININE FOR GFR 0.92 MG/DL (0.70-1.30); FREE T4 1.31 NG/DL (0.76-1.46); GLOMERULAR FILTRATION RATE > 60.0 (>42); GLUCOSE, FASTING 106 MG/DL (70-100); LIPASE 45 U/L (73-393); MB/CK RELATIVE INDEX 0.98 (< OR =4); POTASSIUM SERUM 3.8 MEQ/L (3.5-5.1); SODIUM LEVEL 142 MEQ/L (136-145); TOTAL PROTEIN 6.3 GM/DL (6.4-8.2); TROPONIN I < 0.02 NG/ML (< 0.10)
[2021-04-27] MEDS: ONDANSETRON 4MG/2ML VIAL IV ONE ×2 (22:20→22:38)
[2021-04-27] MEDS ORDERED: ISOVUE-370 76% 100ML VIAL As Ordered ONE (22:39)
[2021-04-27] MEDS ORDERED: fentaNYL 100 MCG/2 ML INJECTION (J3010) IV ONE (23:30)
--- NOTE | 2021-04-28 00:01 | REPVR ---
PROCEDURE INFORMATION: Exam: CTA Chest With Contrast Exam date and time: 04/27/2021 10:55 PM Age: 70 years old Clinical indication: Pain; Other: Chest; Additional info: Chest pain TECHNIQUE: Imaging protocol: Computed tomographic angiography of the chest with contrast. 3D rendering (Not supervised by radiologist): MIP and/or 3D reconstructed images were created by the technologist. Radiation optimization: All CT scans at this facility use at least one of these dose optimization techniques: automated exposure control; mA and/or kV adjustment per patient size (includes targeted exams where dose is matched to clinical indication); or iterative reconstruction. Contrast material: ISOVUE 370; Contrast volume: 100 ml; Contrast route: INTRAVENOUS (IV); COMPARISON: CT Chest without contrast 08/18/2018 9:20 AM FINDINGS: Pulmonary arteries: Normal. No pulmonary emboli. Aorta: Mild fusiform aneurysm of the ascending thoracic aorta measuring 4.3 cm. No aortic dissection. Lungs: Scattered calcified granulomas in the left lung. Mild interstitial scarring. No airspace consolidation. Airways are clear. Pleural spaces: No pneumothorax. No pleural effusion. Heart: Mild cardiomegaly. Advanced coronary artery atherosclerotic disease. Prior sternotomy and CABG. Lymph nodes: Unremarkable. No enlarged lymph nodes. Gallbladder and bile ducts: Incidental calculus in the gallbladder. No gallbladder wall thickening or biliary duct dilation. Bones/joints: Unremarkable. No acute fracture. Soft tissues: Unremarkable. IMPRESSION: 1. No pulmonary embolism. No acute findings. 2. Advanced coronary artery disease. Mild cardiomegaly. 3. Cholelithiasis. 4. Fusiform aneurysm of the ascending thoracic aorta is not significantly changed. No aortic dissection. Electronically signed by: Geovanny Roper On 04/28/2021 00:01:15 AM
--- NOTE | 2021-04-28 00:12 | REPVR ---
PROCEDURE INFORMATION: Exam: CT Abdomen And Pelvis With Contrast Exam date and time: 04/27/2021 10:55 PM Age: 70 years old Clinical indication: Abdominal pain; Localized; Upper; Additional info: Upper abd pain TECHNIQUE: Imaging protocol: Computed tomography of the abdomen and pelvis with contrast. Radiation optimization: All CT scans at this facility use at least one of these dose optimization techniques: automated exposure control; mA and/or kV adjustment per patient size (includes targeted exams where dose is matched to clinical indication); or iterative reconstruction. Contrast material: ISOVUE 370; Contrast volume: 100 ml; Contrast route: INTRAVENOUS (IV); COMPARISON: CT ANGIO ABD/PEL 11/25/2019 10:22 AM FINDINGS: Liver: Unremarkable. No mass. Gallbladder and bile ducts: Small calculus in the gallbladder. No gallbladder wall thickening or pericholecystic fluid. Pancreas: Normal. No ductal dilation. Spleen: Normal. No splenomegaly. Adrenal glands: Normal. No mass. Kidneys and ureters: Nonocclusive bilateral renal artery origin stenoses with severe stenosis on the left. Mild atrophy of the left kidney. Unremarkable right kidney. No hydronephrosis. Stomach and bowel: No gastric wall thickening or inflammatory changes. No gastric pneumatosis. There is colonic diverticulosis without evidence of diverticulitis. The small bowel is unremarkable. No bowel obstruction. Appendix: No evidence of appendicitis. Intraperitoneal space: No free air. No significant fluid collection. Retroperitoneal space: No retroperitoneal hemorrhage. Vasculature: Fusiform aneurysm of the infrarenal abdominal aorta extending to the bifurcation has increased in size, and now measuring up to 6.1 x 4.6 cm (previously 5.1 x 3.8 cm on the prior exam). Eccentric mural thrombus in the distal abdominal aorta. Celiac artery origin is patent. Hepatic artery is patent without stenosis. Splenic artery is patent without stenosis. 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 Superior mesenteric and inferior mesenteric arteries are patent. Bilateral iliac artery aneurysms. Lymph nodes: Unremarkable. No enlarged lymph nodes. Urinary bladder: Unremarkable as visualized. Reproductive: Unremarkable as visualized. Bones/joints: There are advanced degenerative changes in the spine and pelvis. Bilateral pars defects with severe disc degeneration and grade 1 anterolisthesis at L5-S1. Soft tissues: Unremarkable. IMPRESSION: 1. 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 2. Interval increase in size of infrarenal abdominal aortic aneurysm. Bilateral iliac artery aneurysms. 3. Colonic diverticulosis without evidence of diverticulitis. 4. Cholelithiasis. 5. Bilateral pars defects with severe disc degeneration and grade 1 anterolisthesis at L5-S1. Electronically signed by: Geovanny Roper On 04/28/2021 00:12:16 AM
[2021-04-28] MEDS ORDERED: ONDANSETRON 4MG/2ML VIAL IV ONE (01:25)
[2021-04-28 02:08] LABS: RSV AMPLIFICATION NEGATIVE (NEGATIVE)
[2021-04-28 02:30] VITALS: BP 173/75
--- NOTE | 2021-04-28 16:54 | ECGEPIP ---
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
== END 2021-04-28 02:44 | disposition short-term general hospital (02) ==
LOC: M ED 21:00
DX: I71.4 Abdominal aortic aneurysm, without rupture (principal); R07.9 Chest pain, unspecified; R94.31 Abnormal electrocardiogram [ECG] [EKG]; M51.37 Other intervertebral disc degeneration, lumbosacral region; M43.17 Spondylolisthesis, lumbosacral region; K80.20 Calculus of gallbladder without cholecystitis without obstruction; R06.02 Shortness of breath; I25.2 Old myocardial infarction; I25.10 Atherosclerotic heart disease of native coronary artery without angina pectoris; I51.7 Cardiomegaly; E78.5 Hyperlipidemia, unspecified; K21.9 Gastro-esophageal reflux disease without esophagitis; E03.9 Hypothyroidism, unspecified; N40.0 Benign prostatic hyperplasia without lower urinary tract symptoms; C61 Malignant neoplasm of prostate; Z95.1 Presence of aortocoronary bypass graft; Z88.6 Allergy status to analgesic agent; Z79.899 Other long term (current) drug therapy
CPT/HCPCS: 71275; 74177; 80048; 80076; 82550; 82553; 83690; 84439; 84443; 84484; 85025; 87631; 93005; 93041; 94760; 96374; 96375; 96376; 99285; J2405; J3010; Q9967

== ENCOUNTER → 2021-05-24 | Outpatient (CLI) | payer MEDICARE ==
--- NOTE | 2021-05-24 14:31 | RADONC ---
Radiation Oncology Hx/FUP Radiation Oncology Hx/FUP Date of Service: May 24, 2021 Pt Identifier Finn Nunez is a 70 year old male seen for a followup visit today at the department of radiation oncology for a history of right male breast cancer [id number] ER/DC+ HER2- s/p mastectomy and adjuvant RT 48.6 Gy in 28 fractions to the chest wall and an additional 5.4 Gy in 3 fractions boost completed 07/21/13. He continues on tamoxifen. 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 He elected to pursue EBRT for treatment. He received a SpaceOAR implant on 01/13/21. He completed SBRT 36.25 Gy in 5 fractions completed 02/24/21. He had [address] Nicholas. Diagnosis/Treatment History Oncologic History Right male breast cancer 2012 see above. Prostate cancer [id number] Noted LEXII+ on right 11/10/20 PSA 1.71 11/22/20 LILLIAN biopsy Dixon 3+4=7 4/12 cores+ on right Left prostate negative SpaceOAR and fiducials were placed on 01/13/21 02/20/21-02/24/21 Received SBRT 36.25 Gy in 5 fractions Recent data: PSA pending Interval History Recently recovered from emergent AAA stenting/repair. Lost 17 lbs while in the hospital. Now has return of energy and gaining weight, still with some right groin tenderness. With respect to urination he is finding flomax helpful, he has a little intermittency as his only bothersome symptom post RT. No change in bowel habits, no dysuria or frequency. Has history of urethral stricture. Thinks this may be acting up and causing intermittency. Current Therapy Surveillance Stage Prostate cancer cT2a Dixon 3+7=7 (4/12 cores+) PSA 1.71 Stage IIB Social History: Never smoker Does not drink Exposures to asbestos and lead occupaitonal Allergies / Meds Allergies: Coded Allergies: Nitrate Analogues (Verified Adverse Reaction, Intermediate, MIGRAINES, 01/22/19) morphine (Verified Adverse Reaction, Intermediate, N/V, MIGRAINES, 01/22/19) nitroglycerin (Verified Adverse Reaction, Intermediate, MIGRAINES, 01/22/19) Home Meds Active Scripts Tamsulosin HCl (Flomax) 0.4 Mg Capsule, 1 CAP PO QPM for 90 Days, #90 CAP 3 Refills Prov:ROBERT BURNETT MD 05/17/21 Tamoxifen Citrate (Tamoxifen Citrate) 20 Mg Tab, 20 MG PO DAILY for 90 Days, #90 TAB 3 Refills Prov:LALITO ELDRIDGE [facility] 04/06/21 Reported Medications Multivitamins (Thera M Plus Tablet) 1 Each Tablet, 1 TAB PO QAM for 30 Days, #30 TAB 12/15/20 Cholecalciferol (Vitamin D3) (Vitamin D3) 1,000 Unit Tablet, 2000 UNITS PO DAILY, TAB 12/15/20 Promethazine HCl (Promethegan) 25 Mg Supp.rect, 25 MG DC Q6H PRN for MIGRAINE, S UP 05/26/19 Diphenhydramine HCl (Benadryl) 25 Mg Capsule, 25 MG PO QPM PRN for SLEEP for 30 Days, #30 CAP 05/26/19 Acetaminophen (Acetaminophen) 500 Mg Tablet, 500 MG PO Q6H PRN for pain for 15 Days, #60 TAB 05/26/19 Ipratropium/Albuterol Sulfate (Combivent Respimat 20-100 Mcg) 4 Gm Mist.inhal, 1 PUFF INH QID PRN for SOB/WHEEZING, #1 INHALER 05/26/19 Hydrocodone/Acetaminophen (Hydrocodone-Acetamin 10-325 mg) 1 Each Tablet, 1 TAB PO QIDP PRN for pain MDD 4 Tablet(s) for 5 Days, #20 TAB 05/26/19 Folic Acid (Folic Acid) 1 Mg Tablet, 1 TAB PO DAILY for 30 Days, #30 TAB 05/26/19 Chlorthalidone (Chlorthalidone) 25 Mg Tablet, 12.5 MG PO DAILY, HALFTAB 05/26/19 Magnesium Oxide (Magnesium) 400 Mg Capsule, 400 MG PO DAILY for constipation for 30 Days, #30 CAP 05/26/19 Amlodipine/Benazepril (Lotrel 5-20 mg Capsule) 1 Each Capsule, 1 CAP PO DAILY for 30 Days, #30 CAP 05/26/19 Finasteride (Finasteride) 5 Mg Tab, 5 MG PO DAILY for 30 Days, #30 TAB 11/03/18 Carvedilol (Carvedilol) 6.25 Mg Tab, 6.25 MG PO BID for 30 Days, #60 TAB 11/03/18 Zolpidem Tartrate (Zolpidem Tartrate) 10 Mg Tab, 10 MG PO QPMP PRN for sleep MDD 1 Tablet(s) for 30 Days, #30 TAB 11/03/18 Pantoprazole Sodium (Pantoprazole Sodium) 40 Mg Tab, 40 MG PO DAILY for 30 Days, #30 TAB 11/03/18 Clopidogrel Bisulfate (Plavix) 75 Mg Tab, 75 MG PO DAILY for 30 Days, #30 TAB 11/03/18 Tramadol HCl (Tramadol HCl) 50 Mg Tab, 50 MG PO Q6HP PRN for pain MDD 4 Tablet(s) for 7 Days, #30 TAB 11/03/18 Alprazolam (Xanax) 0.25 Mg Tab, 0.25 MG PO TID MDD 2 Tablet(s) for 30 Days, #60 TAB 11/03/18 Atorvastatin Calcium (Atorvastatin Calcium) 80 Mg Tab, 80 MG PO DAILY for 30 Days, #30 TAB 11/03/18 Potassium Chloride (Klor-Con M20) 20 Meq Tabcr, 40 MEQ PO DAILY, TABCR 11/03/18 Aspirin (Aspirin) 325 Mg Tab, 325 MG PO DAILY for fever for 30 Days, #30 TAB 11/03/18 Levothyroxine Sodium (LEVOTHYROXINE SODIUM) 175 Mcg Tab, 150 MCG PO DAILY, TAB 12/14/15 [Vitamin B-12] No Conflict Check, 1 DOSE INJ Q3WKS 12/30/11 Review of Systems Review of Systems Constitutional: Reports: Weight Loss; Denies: Chills, Fever, Fatigue Eyes: Denies: Pain HEENT: Denies: Head Aches Skin: Denies: Rash Pulmonary: Denies: Dyspnea, Cough Cardiovascular: Denies: Chest Pain Gastrointestinal: Denies: Nausea, Abdominal Pain, Hematochezia Genitourinary: Denies: Dysuria, Frequency, Incontinence, Hematuria Hematologic: Denies: Bruising Musculoskeletal: Reports: Leg pain; Denies: Neck pain, Back pain Neurological: Denies: Weakness, Numbness Psych: Reports: Mood Normal Physical Examination Vital Signs Wt 207 lbs T 96.8 P 87 RR 16 BP 108/70 O2 97% Pain 0 Fatigue 0 General Exam: Alert, Cooperative, No Acute Distress Eye Exam: PERRLA, EOMI ENT EXAM: Atraumatic Neck Exam: Supple Chest Exam: Clear to auscultation Heart Exam: Rate Normal Abdomen Exam: Normal bowel sounds, Soft Extremity Exam: Negative: Edema Skin Exam: Nl turgor and temperature Neuro Exam: Normal Gait, Normal Speech Psych Exam: Mental status NL Other Physical Findings Omitted LEXII due to pending PSA Diagnostic and Laboratory Diagnostic Review Radiologic images, relevant labs and pathology reports were personally reviewed and discussed with Mr. Nunez. Assessment and Plan Impression Assessment Mr. Nunez is a 70 year old male with a history of right male breast cancer [id number] ER/DC+ HER2- s/p mastectomy and adjuvant RT 48.6 Gy in 28 fractions to the chest wall and an additional 5.4 Gy in 3 fractions boost completed 07/21/13. He continues on tamoxifen. 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 He elected to pursue EBRT for treatment. He received a SpaceOAR implant on 01/13/21. He completed SBRT 36.25 Gy in 5 fractions completed 02/24/21. He had [address] Nicholas. He is doing well aside from the recent EVAR for his AAA. 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 He is seeing Dr. Nicholas in the next month or so and will raise this question. In the meantime he can continue flomax as it has been helpful. He has not had PSA drawn in advance of this appointment, thus will have one drawn today. Barring unforeseen PSA abnormality I will see him back in 6 months time with PSA check prior in effort to split follow up with Dr. Nicholas. Performance Status ECOG 0 Plan PSA today Follow up in 6 months with PSA Continue flomax for now Mr. Nunez was encouraged to call with questions or concerns in the interim period. Billing Statement Total time of [27] minutes was spent preparing for the visit [1], obtaining HPI [5], examining the patient [2], reviewing diagnostic tests [2], discussing management options [7], coordinating care [2], and writing this note [8]. ROBERT BURNETT MD May 24, 2021 14:31
== END ==
LOC: M ONCR 12:50
PROVIDERS: ATTEND General Practice
DX: C61 Malignant neoplasm of prostate (principal); I71.4 Abdominal aortic aneurysm, without rupture; R39.12 Poor urinary stream; Z79.890 Hormone replacement therapy; Z79.899 Other long term (current) drug therapy; Z85.3 Personal history of malignant neoplasm of breast; Z88.5 Allergy status to narcotic agent; Z88.8 Allergy status to other drugs, medicaments and biological substances; Z92.3 Personal history of irradiation
CPT/HCPCS: 36415; 84153; G0463

== ENCOUNTER → 2021-05-24 | Outpatient (CLI) | payer MEDICARE | LOC: M LAB 14:14 | PROVIDERS: ATTEND General Practice | DX: C61 Malignant neoplasm of prostate (principal) ==

== ENCOUNTER → 2021-11-21 | Outpatient (CLI) | payer MEDICARE ==
[~2021-11-21] MED LIST changes: -KLOR20TA42 PO; +POTA-141 PO
== END ==
LOC: M LAB 09:50
PROVIDERS: ATTEND General Practice
DX: Z01.818 Encounter for other preprocedural examination (principal); R97.20 Elevated prostate specific antigen [PSA]

== ENCOUNTER → 2021-11-28 | Outpatient (CLI) | payer MEDICARE ==
[~2021-11-28] MED LIST changes: +EUTH175T PO; +FLUTISP NARES; +K-TA10TA PO; +MYRB50TA PO; +NITR0.4S14 SL
== END ==
LOC: M ONCR 08:52
PROVIDERS: ATTEND General Practice
DX: C61 Malignant neoplasm of prostate (principal); Z85.3 Personal history of malignant neoplasm of breast; Z88.5 Allergy status to narcotic agent; Z88.8 Allergy status to other drugs, medicaments and biological substances; Z79.899 Other long term (current) drug therapy

== ENCOUNTER → 2021-12-04 | Outpatient (CLI) | payer MEDICARE | LOC: M WHC 12:34 | PROVIDERS: ATTEND Internal Medicine Hematology & Oncology | DX: Z08 Encounter for follow-up examination after completed treatment for malignant neoplasm (principal); Z12.31 Encounter for screening mammogram for malignant neoplasm of breast; Z85.3 Personal history of malignant neoplasm of breast | CPT/HCPCS: 77065; G0279 ==

== ENCOUNTER → 2021-12-11 | Outpatient (CLI) | payer MEDICARE | LOC: M LABSMTC 09:40 | PROVIDERS: ATTEND Anesthesiology | DX: Z01.818 Encounter for other preprocedural examination (principal); Z11.52 Encounter for screening for COVID-19 ==

== ENCOUNTER 2021-12-15 12:10 | Day surgery (SDC) | payer MEDICARE ==
[~2021-12-15] VITALS: Ht 182.9 cm; Wt 97.5 kg
[~2021-12-15 12:10] MED LIST changes: -D31000TA2 PO; +NS 1,000 ML IV ONE; +VITA100093 PO
[2021-12-15 14:45] VITALS: BP 126/82
== END 2021-12-15 14:54 | disposition home or self-care (01) ==
LOC: M OPP 12:10
PROVIDERS: ATTEND Internal Medicine Gastroenterology
DX: D12.6 Benign neoplasm of colon, unspecified (principal); K64.8 Other hemorrhoids; Z80.0 Family history of malignant neoplasm of digestive organs; Z86.010 Personal history of colon polyps; I71.4 Abdominal aortic aneurysm, without rupture; I10 Essential (primary) hypertension; E78.5 Hyperlipidemia, unspecified; D64.9 Anemia, unspecified; I25.10 Atherosclerotic heart disease of native coronary artery without angina pectoris; I25.2 Old myocardial infarction; Z79.899 Other long term (current) drug therapy; Z88.8 Allergy status to other drugs, medicaments and biological substances

== ENCOUNTER → 2022-01-08 | Outpatient (CLI) | payer MEDICARE ==
[~2022-01-08] MED LIST changes: -NS 1,000 ML IV ONE
== END ==
LOC: M LABSMTC 11:16
PROVIDERS: ATTEND Anesthesiology
DX: Z01.818 Encounter for other preprocedural examination (principal); Z11.52 Encounter for screening for COVID-19

== ENCOUNTER 2022-01-12 10:24 | Day surgery (SDC) | payer MEDICARE ==
[~2022-01-12] VITALS: Ht 182.9 cm; Wt 97.1 kg
[~2022-01-12 10:24] MED LIST changes: +CEFUROXIME 1MG/0.1ML INTRACAMERAL INJ As Ordered ONE; +LIDOCAINE 1% SDV 5ML VIAL As Ordered ONE; +MIDAZOLAM INJ 2MG/2ML VIAL (J2250 PER 1MG) As Ordered ONE; +PROPARACAINE 0.5% OPHTH SOL 15ML OD ONE; +TRYPAN BLUE 0.06 % 2.25 ML OPHTH SYR (VISIONBLUE) As Ordered ONE
[2022-01-12] MEDS ORDERED: BSS IRR 500ML/OMIDRIA 4ML IRR BAG (OR ONLY) As Ordered ONE (11:54)
[2022-01-12] MEDS: TROPICAMIDE 1% OPHTH SOLN 2ML OD SCH ×2 (12:05→12:06)
[2022-01-12] MEDS: PHENYLEPHRINE 2.5% OPHTH SOL 2ML OD SCH ×2 (12:05→12:06)
[2022-01-12] MEDS: OFLOXACIN 0.3 % (OCUFLOX) OPTH SOL 5ML OD SCH ×2 (12:05→12:06)
[2022-01-12 13:42] VITALS: BP 165/86
== END 2022-01-12 14:01 | disposition home or self-care (01) ==
LOC: M SDC 10:24
PROVIDERS: ATTEND Ophthalmology
DX: H25.11 Age-related nuclear cataract, right eye (principal); H57.09 Other anomalies of pupillary function; I11.9 Hypertensive heart disease without heart failure; I25.10 Atherosclerotic heart disease of native coronary artery without angina pectoris; I25.2 Old myocardial infarction; E78.5 Hyperlipidemia, unspecified; E07.9 Disorder of thyroid, unspecified; K21.9 Gastro-esophageal reflux disease without esophagitis; F32.9 Major depressive disorder, single episode, unspecified; F41.9 Anxiety disorder, unspecified; C61 Malignant neoplasm of prostate; Z95.1 Presence of aortocoronary bypass graft; Z95.5 Presence of coronary angioplasty implant and graft; Z88.5 Allergy status to narcotic agent; Z88.8 Allergy status to other drugs, medicaments and biological substances; Z79.899 Other long term (current) drug therapy; Z79.82 Long term (current) use of aspirin; Z79.02 Long term (current) use of antithrombotics/antiplatelets; Z79.891 Long term (current) use of opiate analgesic
CPT/HCPCS: 66982; J1097; J2250; V2632

== ENCOUNTER → 2022-02-12 | Outpatient (CLI) | payer MEDICARE ==
[~2022-02-12] MED LIST changes: -CEFUROXIME 1MG/0.1ML INTRACAMERAL INJ As Ordered ONE; -LIDOCAINE 1% SDV 5ML VIAL As Ordered ONE; -MIDAZOLAM INJ 2MG/2ML VIAL (J2250 PER 1MG) As Ordered ONE; -PROPARACAINE 0.5% OPHTH SOL 15ML OD ONE; -TRYPAN BLUE 0.06 % 2.25 ML OPHTH SYR (VISIONBLUE) As Ordered ONE
== END ==
LOC: M LABSMTC 11:22
PROVIDERS: ATTEND Anesthesiology
DX: Z01.812 Encounter for preprocedural laboratory examination (principal)

== ENCOUNTER 2022-02-16 09:50 | Day surgery (SDC) | payer MEDICARE ==
[~2022-02-16] VITALS: Ht 185.4 cm; Wt 97.4 kg
[~2022-02-16 09:50] MED LIST changes: +CEFUROXIME 1MG/0.1ML INTRACAMERAL INJ As Ordered ONE; +LIDOCAINE 1% SDV 5ML VIAL As Ordered ONE; +PROPARACAINE 0.5% OPHTH SOL 15ML OS ONE
[2022-02-16] MEDS ORDERED: BSS IRR 500ML/OMIDRIA 4ML IRR BAG (OR ONLY) As Ordered ONE (10:38)
[2022-02-16] MEDS: PHENYLEPHRINE 2.5% OPHTH SOL 2ML OS SCH ×3 (10:57→11:13)
[2022-02-16] MEDS: TROPICAMIDE 1% OPHTH SOLN 2ML OS SCH ×3 (10:57→11:13)
[2022-02-16] MEDS: OFLOXACIN 0.3 % (OCUFLOX) OPTH SOL 5ML OS SCH ×3 (10:57→11:13)
[2022-02-16] MEDS ORDERED: MIDAZOLAM INJ 2MG/2ML VIAL (J2250 PER 1MG) As Ordered ONE (11:57)
[2022-02-16] MEDS ORDERED: TRYPAN BLUE 0.06 % 2.25 ML OPHTH SYR (VISIONBLUE) As Ordered ONE (11:57)
[2022-02-16 12:35] VITALS: BP 138/90
== END 2022-02-16 12:51 | disposition home or self-care (01) ==
LOC: M SDC 09:50
PROVIDERS: ATTEND Ophthalmology
DX: H25.12 Age-related nuclear cataract, left eye (principal); H21.562 Pupillary abnormality, left eye; I11.9 Hypertensive heart disease without heart failure; E78.5 Hyperlipidemia, unspecified; E03.9 Hypothyroidism, unspecified; I25.2 Old myocardial infarction; I71.4 Abdominal aortic aneurysm, without rupture; I25.10 Atherosclerotic heart disease of native coronary artery without angina pectoris; I72.3 Aneurysm of iliac artery; K21.9 Gastro-esophageal reflux disease without esophagitis; Z95.5 Presence of coronary angioplasty implant and graft; M19.90 Unspecified osteoarthritis, unspecified site; F41.9 Anxiety disorder, unspecified; F32.A Depression, unspecified; G43.909 Migraine, unspecified, not intractable, without status migrainosus; Z85.3 Personal history of malignant neoplasm of breast; C61 Malignant neoplasm of prostate; R06.83 Snoring; Z88.5 Allergy status to narcotic agent; Z88.8 Allergy status to other drugs, medicaments and biological substances; Z79.899 Other long term (current) drug therapy; Z79.02 Long term (current) use of antithrombotics/antiplatelets; Z79.82 Long term (current) use of aspirin; Z79.891 Long term (current) use of opiate analgesic; Z79.811 Long term (current) use of aromatase inhibitors
CPT/HCPCS: 66984; J0697; J1097; J2250; V2632

== ENCOUNTER → 2022-03-25 | Outpatient (REF) | payer MEDICARE ==
[~2022-03-25] MED LIST changes: -CEFUROXIME 1MG/0.1ML INTRACAMERAL INJ As Ordered ONE; -LIDOCAINE 1% SDV 5ML VIAL As Ordered ONE; -PROPARACAINE 0.5% OPHTH SOL 15ML OS ONE
== END ==
LOC: M WUC 19:13
PROVIDERS: ATTEND Physician Assistant
DX: R30.0 Dysuria (principal)

== ENCOUNTER → 2022-04-24 | Outpatient (REF) | payer MEDICARE | LOC: M LAB REF 11:45 | PROVIDERS: ATTEND Student in an Organized Health Care Education/Training Program | DX: R30.0 Dysuria (principal) ==

== ENCOUNTER 2022-05-07 15:29 | Emergency (ER) | payer MEDICARE ==
[~2022-05-07] VITALS: Ht 185.4 cm; Wt 95.5 kg
[2022-05-07] MEDS ORDERED: ACETAMINOPHEN 1000MG 100ML IV BTL (OFIRMEV) (J0131 PER 10MG) IV ONE (16:05)
[2022-05-07] MEDS ORDERED: ONDANSETRON 4MG 2ML VIAL IV ONE (16:10)
[2022-05-07 16:31] LABS: BASO # 0.1 10^3/uL (0.0-0.2); BASO % 0.4 % (0.0-1.0); HEMATOCRIT 38.5 % (42.0-52.0); HEMOGLOBIN 13.1 g/dl (13.5-17.5); LYMPH # 1.7 10^3/uL (1.5-5.0); LYMPH % 13.2 % (24.0-44.0); MEAN CORPUSCULAR HEMOGLOBIN 34.7 pg (27.0-33.0); MEAN CORPUSCULAR VOLUME 101.9 fl (80.0-96.0); MONO # 0.8 10^3/uL (0.0-0.8); MONO % 5.9 % (2.0-8.0); NEUTROPHILS # 10.4 10^3/uL (1.5-8.5); PLATELET COUNT, AUTOMATED 203 10^3/uL (150-450); RED BLOOD COUNT 3.78 10^6/uL (4.30-6.10)
[2022-05-07 16:53] LABS: INR 0.99; PROTHROMBIN TIME 13.5 SECONDS (12.7-14.5)
[2022-05-07 16:54] LABS: PARTIAL THROMBOPLASTIN TIME 29.7 SECONDS (25.9-37.0)
[2022-05-07 17:04] LABS: ALBUMIN 3.7 GM/DL (3.2-5.2); ALT/SGPT 20 U/L (12-78); BILIRUBIN,TOTAL 0.4 MG/DL (0.2-1.0); BLOOD UREA NITROGEN 11 MG/DL (7-18); CARBON DIOXIDE LEVEL 23 MEQ/L (21-32); CHLORIDE LEVEL 113 MEQ/L (98-107); CREATININE FOR GFR 1.17 MG/DL (0.70-1.30); GLOMERULAR FILTRATION RATE > 60.0 (>42); GLUCOSE, FASTING 94 MG/DL (70-100); POTASSIUM SERUM 3.6 MEQ/L (3.5-5.1); SODIUM LEVEL 144 MEQ/L (136-145); TOTAL PROTEIN 6.5 GM/DL (6.4-8.2)
[2022-05-07] MEDS ORDERED: ISOVUE-370 76% 100ML VIAL As Ordered ONE (17:46)
[2022-05-07] MEDS ORDERED: traMADol 50 MG TAB PO ONE (18:00)
[2022-05-07] MEDS ORDERED: METOCLOPRAMIDE INJ 10MG/2ML VIAL (J2765 PER 1) IV ONE (18:00)
[2022-05-07 18:48] LABS: CK-MB VALUE MASS 1.5 NG/ML (<3.6); MB/CK RELATIVE INDEX 1.79 (< OR =4)
[2022-05-07] MEDS ORDERED: ONDA4TAB6 PO (19:00)
[2022-05-07 19:11] VITALS: BP 136/72
== END 2022-05-07 19:18 | disposition home or self-care (01) ==
LOC: M ED 15:29
DX: R10.30 Lower abdominal pain, unspecified (principal); R11.2 Nausea with vomiting, unspecified; M54.50 Low back pain, unspecified; E03.9 Hypothyroidism, unspecified; K21.9 Gastro-esophageal reflux disease without esophagitis; Z79.899 Other long term (current) drug therapy; Z79.890 Hormone replacement therapy; Z79.01 Long term (current) use of anticoagulants; Z79.82 Long term (current) use of aspirin; Z88.5 Allergy status to narcotic agent; Z88.8 Allergy status to other drugs, medicaments and biological substances
CPT/HCPCS: 71260; 72131; 74177; 80053; 82550; 82553; 84484; 85025; 85610; 85730; 93005; 96374; 96375; 99284; J0131; J2405; J2765; Q9967

== ENCOUNTER → 2022-05-11 | Outpatient (CLI) | payer MEDICARE ==
[~2022-05-11] MED LIST changes: +ONDA4TAB6 PO
== END ==
LOC: M WUC 15:18
PROVIDERS: ATTEND Physician Assistant Medical
DX: M43.17 Spondylolisthesis, lumbosacral region (principal); M51.36 Other intervertebral disc degeneration, lumbar region; M51.37 Other intervertebral disc degeneration, lumbosacral region; M25.78 Osteophyte, vertebrae

== ENCOUNTER → 2022-05-23 | Outpatient (CLI) | payer MEDICARE | LOC: M PLALAB 15:46 | PROVIDERS: ATTEND Urology | DX: C61 Malignant neoplasm of prostate (principal) ==

== ENCOUNTER → 2022-11-27 | Outpatient (CLI) | payer MEDICARE ==
[~2022-11-27] MED LIST changes: +CLOP75TA99 PO; -PLAV1TAB2 PO
[2022-11-27 10:44] LABS: PROSTATIC SPECIFIC AG MONITOR 0.05 NG/ML (< 4.00)
== END ==
LOC: M LAB 09:33
PROVIDERS: ATTEND General Practice
DX: C61 Malignant neoplasm of prostate (principal)

== ENCOUNTER → 2022-11-30 | Outpatient (CLI) | payer MEDICARE | LOC: M ONCR 11:22 | PROVIDERS: ATTEND General Practice | DX: Z08 Encounter for follow-up examination after completed treatment for malignant neoplasm (principal); Z79.82 Long term (current) use of aspirin; Z79.890 Hormone replacement therapy; Z79.899 Other long term (current) drug therapy; Z85.46 Personal history of malignant neoplasm of prostate; Z85.3 Personal history of malignant neoplasm of breast; Z88.5 Allergy status to narcotic agent; Z88.8 Allergy status to other drugs, medicaments and biological substances; Z92.3 Personal history of irradiation ==

== ENCOUNTER → 2022-12-05 | Outpatient (CLI) | payer MEDICARE | LOC: M WHC 12:56 | PROVIDERS: ATTEND Specialist | DX: Z12.31 Encounter for screening mammogram for malignant neoplasm of breast (principal) ==

== ENCOUNTER → 2023-11-25 | Outpatient (CLI) | payer MEDICARE ==
[~2023-11-25] MED LIST changes: +FINA5TAB2; -K-TA10TA PO; +LORA1TAB23 PO; -LORA1TAB4 PO; +POTA-164 PO
== END ==
LOC: M LAB 09:21
PROVIDERS: ATTEND Urology
DX: C61 Malignant neoplasm of prostate (principal)

== ENCOUNTER → 2023-11-29 | Outpatient (CLI) | payer MEDICARE, OTHER | LOC: M ONCR 11:03 | PROVIDERS: ATTEND General Practice | DX: C61 Malignant neoplasm of prostate (principal); N39.3 Stress incontinence (female) (male); Z85.3 Personal history of malignant neoplasm of breast; Z71.2 Person consulting for explanation of examination or test findings; Z77.090 Contact with and (suspected) exposure to asbestos; Z77.011 Contact with and (suspected) exposure to lead; Z88.5 Allergy status to narcotic agent; Z88.8 Allergy status to other drugs, medicaments and biological substances; Z79.810 Long term (current) use of selective estrogen receptor modulators (SERMs); Z79.51 Long term (current) use of inhaled steroids; Z79.899 Other long term (current) drug therapy; Z79.02 Long term (current) use of antithrombotics/antiplatelets; Z79.82 Long term (current) use of aspirin; Z90.11 Acquired absence of right breast and nipple; Z92.29 Personal history of other drug therapy; Z92.3 Personal history of irradiation ==

== ENCOUNTER → 2023-12-06 | Outpatient (CLI) | payer MEDICARE | LOC: M WHC 08:42 | PROVIDERS: ATTEND Internal Medicine | DX: Z08 Encounter for follow-up examination after completed treatment for malignant neoplasm (principal); Z85.3 Personal history of malignant neoplasm of breast; Z12.31 Encounter for screening mammogram for malignant neoplasm of breast | CPT/HCPCS: 77067; G0279 ==

== ENCOUNTER → 2024-04-22 | Outpatient (CLI) | payer MEDICARE ==
[~2024-04-22] MED LIST changes: +ONDA-282 PO; -ONDA4TAB6 PO
[2024-04-22 09:58] LABS: HEMATOCRIT 42.1 % (42.0-52.0); MEAN CORPUSCULAR HEMOGLOBIN 34.1 pg (27.0-33.0); MEAN CORPUSCULAR HGB CONC 33.3 g/dl (32.0-36.5); MEAN CORPUSCULAR VOLUME 102.4 fl (80.0-96.0); PLATELET COUNT, AUTOMATED 235 10^3/uL (150-450); RED BLOOD COUNT 4.11 10^6/uL (4.30-6.10)
[2024-04-22 10:31] LABS: BLOOD UREA NITROGEN 13 MG/DL (9-23); CALCIUM LEVEL 9.4 MG/DL (8.3-10.6); CARBON DIOXIDE LEVEL 31 MMOL/L (20-31); CHLORIDE LEVEL 108 MMOL/L (98-107); CREATININE FOR GFR 1.18 MG/DL (0.70-1.30); GLOMERULAR FILTRATION RATE > 60.0 (>42); GLUCOSE, FASTING 97 MG/DL (74-106); MAGNESIUM LEVEL 2.2 MG/DL (1.8-2.4); POTASSIUM SERUM 4.1 MMOL/L (3.5-5.1); SODIUM LEVEL 142 MMOL/L (136-145)
[2024-04-22 10:33] LABS: THYROID STIMULATING HORMONE 3.235 uIU/ML (0.55-4.78)
== END ==
LOC: M LAB 08:46
PROVIDERS: ATTEND Physician Assistant
DX: I48.0 Paroxysmal atrial fibrillation (principal)

== ENCOUNTER → 2024-04-27 | Outpatient (CLI) | payer MEDICARE | LOC: M EKG 09:04 | PROVIDERS: ATTEND Physician Assistant | DX: I48.0 Paroxysmal atrial fibrillation (principal) ==

== ENCOUNTER → 2024-05-26 | Outpatient (CLI) | payer MEDICARE ==
[2024-05-26 09:29] LABS: HEMATOCRIT 41.4 % (42.0-52.0); HEMOGLOBIN 13.8 g/dl (13.5-17.5); MEAN CORPUSCULAR HEMOGLOBIN 34.2 pg (27.0-33.0); MEAN CORPUSCULAR HGB CONC 33.3 g/dl (32.0-36.5); MEAN CORPUSCULAR VOLUME 102.5 fl (80.0-96.0); PLATELET COUNT, AUTOMATED 204 10^3/uL (150-450); RED BLOOD COUNT 4.04 10^6/uL (4.30-6.10); WHITE BLOOD COUNT 9.2 10^3/uL (4.0-10.0)
[2024-05-26 09:49] LABS: BLOOD UREA NITROGEN 12 MG/DL (9-23); CARBON DIOXIDE LEVEL 32 MMOL/L (20-31); CHLORIDE LEVEL 107 MMOL/L (98-107); CREATININE FOR GFR 1.23 MG/DL (0.70-1.30); GLOMERULAR FILTRATION RATE > 60.0 (>42); GLUCOSE, FASTING 144 MG/DL (74-106); POTASSIUM SERUM 3.8 MMOL/L (3.5-5.1); SODIUM LEVEL 140 MMOL/L (136-145)
== END ==
LOC: M LAB 08:22
PROVIDERS: ATTEND Physician Assistant
DX: I48.0 Paroxysmal atrial fibrillation (principal)

== ENCOUNTER → 2024-06-04 | Outpatient (CLI) | payer MEDICARE | LOC: M LAB 08:24 | PROVIDERS: ATTEND Urology | DX: C61 Malignant neoplasm of prostate (principal) ==

== ENCOUNTER → 2024-06-29 | Outpatient (CLI) | payer MEDICARE | LOC: M LAB 07:48 | PROVIDERS: ATTEND General Practice | DX: C61 Malignant neoplasm of prostate (principal) ==

== ENCOUNTER → 2024-12-01 | Outpatient (CLI) | payer MEDICARE ==
[~2024-12-01] MED LIST changes: -BAYE325T12 PO; +BAYE325T2 PO; +ELIQ5TAB PO; +EZET10TA58 PO; -FINA5TAB2; +POTA10CA70 PO
== END ==
LOC: M ONCR 11:14
PROVIDERS: ATTEND General Practice
DX: C61 Malignant neoplasm of prostate (principal); Z85.3 Personal history of malignant neoplasm of breast; Z90.10 Acquired absence of unspecified breast and nipple; Z92.3 Personal history of irradiation; Z92.29 Personal history of other drug therapy; Z77.011 Contact with and (suspected) exposure to lead; Z77.090 Contact with and (suspected) exposure to asbestos; Z88.5 Allergy status to narcotic agent; Z88.8 Allergy status to other drugs, medicaments and biological substances; Z79.810 Long term (current) use of selective estrogen receptor modulators (SERMs); Z79.82 Long term (current) use of aspirin; Z79.899 Other long term (current) drug therapy; Z79.51 Long term (current) use of inhaled steroids; Z79.01 Long term (current) use of anticoagulants

== ENCOUNTER → 2024-12-18 | Outpatient (CLI) | payer MEDICARE ==
[2024-12-18 10:12] LABS: PROSTATIC SPECIFIC AG MONITOR 0.04 NG/ML (< 4.00)
== END ==
LOC: M LAB 08:54
PROVIDERS: ATTEND General Practice
DX: C61 Malignant neoplasm of prostate (principal)

== ENCOUNTER → 2025-03-09 | Outpatient (CLI) | payer MEDICARE ==
[~2025-03-09] MED LIST changes: -FLOM0.4C39 PO; +TAMS-18 PO
== END ==
LOC: M PLAIMG 10:30
PROVIDERS: ATTEND Physician Assistant
DX: I77.810 Thoracic aortic ectasia (principal); I08.0 Rheumatic disorders of both mitral and aortic valves

== ENCOUNTER → 2025-05-24 | Outpatient (CLI) | payer MEDICARE ==
[~2025-05-24] MED LIST changes: +ACET-1592 PO; -ACET1TAB37 PO; +TAMS1CAP17; +TAMS1CAP17 PO
== END ==
LOC: M LAB 10:38
PROVIDERS: ATTEND Urology
DX: C61 Malignant neoplasm of prostate (principal)

== ENCOUNTER → 2025-06-25 | Outpatient (CLI) | payer MEDICARE ==
[2025-06-25 10:02] LABS: BASO # 0.1 10^3/uL (0.0-0.2); BASO % 0.7 % (0.0-1.0); EOS # 0.2 10^3/uL (0.0-0.5); EOS % 2.6 % (0.0-3.0); LYMPH # 2.6 10^3/uL (1.5-5.0); LYMPH % 28.9 % (24.0-44.0); MONO # 0.7 10^3/uL (0.0-0.8); MONO % 8.0 % (2.0-8.0); NEUTROPHILS # 5.3 10^3/uL (1.5-8.5); NEUTROPHILS % 59.5 % (36.0-66.0); PLATELET COUNT, AUTOMATED 208 10^3/uL (150-450)
[2025-06-25 10:31] LABS: ALT/SGPT 11.0 U/L (7.0-40); AST/SGOT 12.0 U/L (<34); CALCIUM LEVEL 9.5 MG/DL (8.3-10.6); CARBON DIOXIDE LEVEL 31.0 MMOL/L (20-31); CHLORIDE LEVEL 110.0 MMOL/L (98-107); CREATININE FOR GFR 1.47 MG/DL (0.70-1.30); GLOMERULAR FILTRATION RATE 49.1 (>42); POTASSIUM SERUM 4.5 MMOL/L (3.5-5.1); SODIUM LEVEL 145.0 MMOL/L (136-145)
== END ==
LOC: M LAB 09:35
PROVIDERS: ATTEND Internal Medicine Hematology & Oncology
DX: C50.919 Malignant neoplasm of unspecified site of unspecified female breast (principal)

== ENCOUNTER → 2025-07-09 | Outpatient (CLI) | payer MEDICARE ==
[~2025-07-09] MED LIST changes: +B-122500 PO; +ZOLP10TA11 PO; -ZOLP10TA2 PO
== END ==
LOC: M WHC 14:06
PROVIDERS: ATTEND Internal Medicine Medical Oncology
DX: Z12.31 Encounter for screening mammogram for malignant neoplasm of breast (principal); Z85.3 Personal history of malignant neoplasm of breast; R92.312 Mammographic fatty tissue density, left breast; Z90.11 Acquired absence of right breast and nipple
CPT/HCPCS: 77067; G0279

== ENCOUNTER → 2025-07-23 | Outpatient (CLI) | payer MEDICARE ==
[~2025-07-23] MED LIST changes: +PROHANCE 279.3MG/ML 15ML VIAL ONE; +PROHANCE 279.3MG/ML 5ML VIAL ONE
== END ==
LOC: M PLAIMG 13:11
PROVIDERS: ATTEND Internal Medicine Medical Oncology
DX: C50.929 Malignant neoplasm of unspecified site of unspecified male breast (principal); N40.0 Benign prostatic hyperplasia without lower urinary tract symptoms; K80.20 Calculus of gallbladder without cholecystitis without obstruction; K86.89 Other specified diseases of pancreas; N28.1 Cyst of kidney, acquired; N26.1 Atrophy of kidney (terminal)
CPT/HCPCS: 74183; A9576

== ENCOUNTER → 2025-09-13 | Outpatient (CLI) | payer MEDICARE ==
[~2025-09-13] MED LIST changes: -PROHANCE 279.3MG/ML 15ML VIAL ONE; -PROHANCE 279.3MG/ML 5ML VIAL ONE
== END ==
LOC: M RAD 10:23
PROVIDERS: ATTEND Internal Medicine Medical Oncology
DX: C50.919 Malignant neoplasm of unspecified site of unspecified female breast (principal); C61 Malignant neoplasm of prostate; M54.59 Other low back pain
CPT/HCPCS: 78306; A9503